=== PATIENT | female | born 1950 | race Caucasian/White ===

== ENCOUNTER → 2017-10-18 14:46 | Outpatient (CLI) | payer MEDICARE, OTHER, SELFPAY ==
[2017-10-18 16:06] LABS: BUN Creatinine Ratio 26.7 (6-22); Calcium 9.4 mg/dL (8.4-10.2); Estimated Glomerular Filt Rate > 60.0 mL/min (>60); Glucose 86 mg/dL (80-110); HEMOLYSIS < 15 (0-50); Potassium 4.5 mmol/L (3.4-5.1); Sodium 130 mmol/L (137-145)
== END ==
PROVIDERS: PCP Family Medicine; Visit Provider Family Medicine
DX: E87.1 Hypo-osmolality and hyponatremia (principal)
CPT/HCPCS: 36415; 80048

== ENCOUNTER → 2018-03-08 12:19 | Outpatient (CLI) | payer MEDICARE, OTHER, SELFPAY ==
--- NOTE | 2018-03-08 12:28 | DI.MG.S_ITS ---
BILATERAL DIGITAL SCREENING MAMMOGRAM 3D/2D WITH CAD: 03/08/2018 CLINICAL: Additional evaluation requested from prior study. Comparison is made to exams dated: 01/10/2016 mammogram, 02/21/2014 mammogram - [facility], and 04/22/2009 mammogram - [facility]. There are scattered fibroglandular elements in both breasts. Current study was also evaluated with a Computer Aided Detection (CAD) system. There is an oval equal density asymmetry with an indistinct margin in the left breast posterior depth inferior region seen on the mediolateral oblique view only. No other significant masses, calcifications, or other findings are seen in either breast. IMPRESSION: INCOMPLETE: NEEDS ADDITIONAL IMAGING EVALUATION The oval equal density asymmetry in the left breast is indeterminate. Mediolateral and spot compression views as well as additional views with possible ultrasound are recommended. This exam was interpreted at Station ID: [id number]. NOTE: For mammograms, a report in lay terms will be sent to the patient. Approximately 15% of breast malignancies will not be visualized mammographically. In the management of a palpable breast mass, a negative mammogram must not discourage biopsy of a clinically suspicious lesion. Electronically Signed By: Jeff gilliam/janel:03/08/2018 15:45:24 letter sent: Additional Imaging Needed ACR BI-RADS Category 0: Incomplete 3340F
== END ==
PROVIDERS: PCP Family Medicine; Visit Provider Family Medicine
DX: Z12.31 Encounter for screening mammogram for malignant neoplasm of breast (principal); M81.0 Age-related osteoporosis without current pathological fracture; Z78.0 Asymptomatic menopausal state
CPT/HCPCS: 77063; 77067; 77080

== ENCOUNTER → 2018-03-31 13:08 | Outpatient (CLI) | payer MEDICARE, OTHER, SELFPAY ==
--- NOTE | 2018-03-31 | DI.MG.S_ITS ---
UNILATERAL LEFT DIGITAL DIAGNOSTIC MAMMOGRAM 3D/2D WITH ADDITIONAL VIEWS: 03/31/2018 CLINICAL: Additional evaluation requested from prior study. Comparison is made to exams dated: 03/08/2018 mammogram - [facility], 01/10/2016 mammogram, and 02/21/2014 mammogram - [facility]. There are scattered fibroglandular elements in left breast. The asymmetry in the left breast posterior depth inferior region seen on the mediolateral oblique view only is not seen in additional views. No other significant masses or calcifications are seen in the breast. IMPRESSION: There is no mammographic evidence of malignancy. A 1 year screening mammogram is recommended. This exam was interpreted at Station ID: [id number]. NOTE: For mammograms, a report in lay terms will be sent to the patient. Approximately 15% of breast malignancies will not be visualized mammographically. In the management of a palpable breast mass, a negative mammogram must not discourage biopsy of a clinically suspicious lesion. Electronically Signed By: Michelle Camp M.D. lk/:03/31/2018 14:06:06 letter sent: Normal Exam ACR BI-RADS Category 2: Benign Finding(s) 3342F
[2018-03-31 13:29] LABS: Add Manual Diff / Slide Review NO; Basophils Percent Auto 1.3 % (0-2); Hemoglobin 10.5 g/dL (12.0-16.0); Lymphocytes Percent Auto 16.4 % (25-40); Mean Corpuscular HGB Conc 32.7 % (30-36); Mean Corpuscular Hemoglobin 26.6 PG (26-34); Mean Corpuscular Volume 81.6 fL (80-100); Monocytes Percent Auto 6.5 % (3-14); Neutrophils Absolute Auto 4600 /uL (3000-5900); Neutrophils Percent Auto 70.8 % (50-75); Platelet Count 366 X10^3/uL (150-400); Red Blood Cell Count 3.93 X10^6/uL (4.0-5.2); White Blood Cell Count 6.5 X10^3/uL (4.5-11.0)
[2018-03-31 13:55] LABS: Alanine Aminotransferase 31 IU/L (9-52); Albumin 4.3 g/dL (3.5-5.0); Albumin Globulin Ratio 1.3 (1.0-2.8); Alkaline Phosphatase 61 U/L (38-126); Aspartate Aminotransferase 28 IU/L (14-36); Bilirubin Total 0.2 mg/dL (0.2-1.3); Blood Urea Nitrogen 15 mg/dL (7-17); Calcium 8.7 mg/dL (8.4-10.2); Carbon Dioxide 29 mmol/L (22-32); Chloride 94 mmol/L (98-107); Cholesterol 192 mg/dL (140-199); Estimated Glomerular Filt Rate > 60.0 mL/min (>60); Globulin 3.2 g/dL (1.7-4.1); Glucose 91 mg/dL (80-110); HDL Cholesterol 55 mg/dL (40-60); HEMOLYSIS < 15 (0-50); LDL Cholesterol Calculated 126 mg/dL (<100); Potassium 4.5 mmol/L (3.4-5.1); Sodium 134 mmol/L (137-145); Total Protein 7.5 g/dL (6.3-8.2); Triglycerides 57 mg/dL (35-150)
[2018-03-31 14:54] LABS: Thyroid Stimulating Hormone 3.79 uIU/mL (0.47-4.68)
== END ==
PROVIDERS: PCP Family Medicine; Visit Provider Family Medicine
DX: R92.8 Other abnormal and inconclusive findings on diagnostic imaging of breast (principal); M81.0 Age-related osteoporosis without current pathological fracture; D64.9 Anemia, unspecified
CPT/HCPCS: 36415; 77065; 80053; 80061; 83540; 83550; 84443; 85025; G0279

== ENCOUNTER → 2018-03-31 14:27 | Outpatient (CLI) | payer MEDICARE, OTHER, SELFPAY ==
[2018-03-31 21:04] LABS: HEMOLYSIS < 15 (0-50); Iron 49 ug/dL (37-170)
[2018-03-31 21:14] LABS: Percent Iron Saturation 13 % (15-50); Total Iron Binding Capacity 376 ug/dL (265-497); Transferrin 317 mg/dL (206-381)
== END ==
PROVIDERS: PCP Family Medicine; Visit Provider Family Medicine
DX: D64.9 Anemia, unspecified (principal)
CPT/HCPCS: 83540; 83550

== ENCOUNTER → 2019-04-05 16:14 | Outpatient (CLI) | payer MEDICARE, OTHER, SELFPAY ==
[2019-04-05 16:59] LABS: Add Manual Diff / Slide Review NO; Basophils Absolute Auto 100 /uL (0-100); Basophils Percent Auto 1.3 % (0-2); Eosinophils Absolute Auto 300 /uL (0-450); Eosinophils Percent Auto 5.6 % (2-4); Hematocrit 31.2 % (36-46); Hemoglobin 10.1 g/dL (12.0-16.0); Lymphocytes Absolute Auto 1100 /uL (1100-4500); Lymphocytes Percent Auto 19.3 % (25-40); Mean Corpuscular HGB Conc 32.2 % (30-36); Mean Corpuscular Hemoglobin 25.7 PG (26-34); Mean Corpuscular Volume 79.7 fL (80-100); Monocytes Absolute Auto 400 /uL (0-900); Monocytes Percent Auto 6.8 % (3-14); Neutrophils Absolute Auto 3700 /uL (1500-7000); Platelet Count 317 X10^3/uL (150-400); Red Blood Cell Count 3.91 X10^6/uL (4.0-5.2); Red Cell Distribution Width 15.8 % (11.6-14.8); White Blood Cell Count 5.5 X10^3/uL (4.5-11.0)
[2019-04-05 17:06] LABS: Alanine Aminotransferase 7 IU/L (<35); Albumin 4.3 g/dL (3.5-5.0); Albumin Globulin Ratio 1.5 (1.0-2.8); Alkaline Phosphatase 70 U/L (38-126); Aspartate Aminotransferase 23 IU/L (14-36); Bilirubin Total 0.4 mg/dL (0.2-1.3); Blood Urea Nitrogen 12 mg/dL (7-17); Calcium 9.2 mg/dL (8.4-10.2); Carbon Dioxide 28 mmol/L (22-32); Chloride 90 mmol/L (98-107); Cholesterol 220 mg/dL (140-199); Estimated Glomerular Filt Rate > 60.0 mL/min (>60); Globulin 2.9 g/dL (1.7-4.1); Glucose 91 mg/dL (80-110); HDL Cholesterol 58 mg/dL (40-60); HEMOLYSIS < 15 (0-50); LDL Cholesterol Calculated 152 mg/dL (<100); Potassium 4.3 mmol/L (3.4-5.1); Sodium 128 mmol/L (137-145); Total Protein 7.2 g/dL (6.3-8.2); Triglycerides 52 mg/dL (35-150)
[2019-04-05 17:40] LABS: Thyroid Stimulating Hormone 3.34 uIU/mL (0.47-4.68)
== END ==
PROVIDERS: PCP Family Medicine; Visit Provider Family Medicine
DX: D64.9 Anemia, unspecified (principal)
CPT/HCPCS: 36415; 80053; 80061; 84443; 85025

== ENCOUNTER → 2019-06-08 13:44 | Outpatient (CLI) | payer MEDICARE, SELFPAY | PROVIDERS: PCP Family Medicine; Visit Provider Family Medicine | DX: M81.0 Age-related osteoporosis without current pathological fracture (principal); Z78.0 Asymptomatic menopausal state; Z82.62 Family history of osteoporosis | CPT/HCPCS: 77080 ==

== ENCOUNTER → 2020-03-13 16:52 | Outpatient (CLI) | payer MEDICARE, SELFPAY ==
[2020-03-13 17:30] LABS: Add Manual Diff / Slide Review NO; Basophils Absolute Auto 100 /uL (0-100); Basophils Percent Auto 1.3 % (0-2); Eosinophils Absolute Auto 400 /uL (0-450); Eosinophils Percent Auto 7.7 % (2-4); Hematocrit 30.1 % (36-46); Hemoglobin 9.9 g/dL (12.0-16.0); Lymphocytes Absolute Auto 1100 /uL (1100-4500); Lymphocytes Percent Auto 20.5 % (25-40); Mean Corpuscular Hemoglobin 26.4 PG (26-34); Monocytes Absolute Auto 500 /uL (0-900); Monocytes Percent Auto 8.7 % (3-14); Neutrophils Absolute Auto 3200 /uL (1500-7000); Neutrophils Percent Auto 61.8 % (50-75); Platelet Count 317 X10^3/uL (150-400); Red Blood Cell Count 3.76 X10^6/uL (4.0-5.2); Red Cell Distribution Width 14.9 % (11.6-14.8); White Blood Cell Count 5.2 X10^3/uL (4.5-11.0)
[2020-03-13 17:59] LABS: Alanine Aminotransferase 9 IU/L (<35); Albumin 4.2 g/dL (3.5-5.0); Albumin Globulin Ratio 1.2 (1.0-2.8); Alkaline Phosphatase 69 U/L (38-126); Aspartate Aminotransferase 27 IU/L (14-36); BUN Creatinine Ratio 33.3 (6-22); Bilirubin Total 0.3 mg/dL (0.2-1.3); Blood Urea Nitrogen 19 mg/dL (7-17); Calcium 8.8 mg/dL (8.4-10.2); Carbon Dioxide 31 mmol/L (22-32); Chloride 95 mmol/L (98-107); Estimated Glomerular Filt Rate > 60.0 mL/min (>60); Globulin 3.5 g/dL (1.7-4.1); Glucose 93 mg/dL (80-110); HEMOLYSIS < 15 (0-50); Magnesium 2.2 mg/dL (1.6-2.3); Potassium 4.5 mmol/L (3.4-5.1); Sodium 129 mmol/L (137-145); Total Protein 7.7 g/dL (6.3-8.2)
[2020-03-13 18:28] LABS: Thyroid Stimulating Hormone 5.29 uIU/mL (0.47-4.68)
== END ==
PROVIDERS: PCP Family Medicine; Referring Provider Family Medicine; Visit Provider Family Medicine
DX: G20 Parkinson's disease (principal)
CPT/HCPCS: 36415; 80053; 83735; 84443; 85025

== ENCOUNTER → 2020-03-28 14:34 | Outpatient (CLI) | payer MEDICARE, SELFPAY ==
--- NOTE | 2020-03-28 14:36 | DI.MRI.S_ITS ---
PROCEDURE: MR KNEE RT WO CON INDICATIONS: Right Knee pain TECHNIQUE: Noncontrast sagittal PD fast spin echo and T2 fast spin echo with fat saturation, sagittal 3-D FLASH with fat saturation; coronal T1 spin echo and PD fast spin echo with fat saturation, and axial PD fast spin echo with fat saturation through the knee. COMPARISON: [facility], MR, KNEE WITHOUT CONTRAST, 02/24/2012, 7:58. FINDINGS: Image quality: Excellent. Menisci: There is medial meniscal extrusion. There is complex degenerative tear involving the body and posterior horn of the medial meniscus. There is intrasubstance degeneration anterior horn of the medial meniscus. The lateral meniscus demonstrates normal morphology and internal signal. The meniscal root ligaments appear intact. Cruciate ligaments: The anterior and posterior cruciate ligaments appear intact. There is a 1.7 x 1.1 x 1.4 cm septated cyst just adjacent to the PCL, new since the last exam. Medial structures: The medial collateral ligament appears intact. The semimembranosus tendon insertions and meniscocapsular junction appear intact. Visualized portions of the pes anserinus tendons appear normal. No abnormal bursal fluid. Lateral structures: The lateral collateral ligament, long and short heads of the biceps femoris tendon appear intact. The popliteus tendon appears normal. Iliotibial band appears normal. Anterior structures: The quadriceps and patellar tendons appear intact. Patellar alignment is normal. No femoral trochlear dysplasia or ventral trochlear prominence. No edema in the infrapatellar fat pad. Bones and cartilage: No fractures. There is severe cartilage thinning and fibrillation of the medial femorotibial compartment with denudation of articular cartilage, significantly worsened compared to 02/24/2012. There is subchondral edema and cyst formation in the medial femoral condyle and, to a less degree, medial tibial plateau. There is also mild to moderate cartilage thinning and fibrillation in the lateral femorotibial compartment and patellofemoral compartment. A small near full-thickness fissure is noted in the lateral tibial plateau. Joint space: There is moderate knee joint effusion. A multilocular moderate-sized Lord's cyst is present. Normal appearing synovial plicae are incidentally noted. IMPRESSION: 1. Medial meniscal extrusion with complex degenerative tear involving the body and posterior horn. 2. A 1.7 x 1.1 x 1.4 cm multilocular posterior collateral ligament cyst. 3. Severe cartilage loss in the medial femorotibial compartment. 4. Moderate knee joint effusion. 5. A moderate-sized multilocular Lord cyst. Dictated by: Queenie Rutledge M.D. on 03/28/2020 at 15:58 Approved by: Queenie Rutledge M.D. on 03/28/2020 at 16:17
== END ==
PROVIDERS: PCP Family Medicine; Referring Provider Family Medicine; Visit Provider Family Medicine
DX: M25.561 Pain in right knee (principal); M23.221 Derangement of posterior horn of medial meniscus due to old tear or injury, right knee; M25.461 Effusion, right knee; M71.21 Synovial cyst of popliteal space [Baker], right knee
CPT/HCPCS: 73721

== ENCOUNTER → 2020-06-10 12:54 | Outpatient (CLI) | payer MEDICARE, SELFPAY ==
[2020-06-10 14:46] LABS: Cholesterol 237 mg/dL (140-199); HDL Cholesterol 60 mg/dL (40-60); LDL Cholesterol Calculated 158 mg/dL (<100); Triglycerides 96 mg/dL (35-150)
[2020-06-10 15:31] LABS: Free T3, Triiodothyronine Free 3.75 pg/mL (2.77-5.27); Free T4, Direct Thyroxine 0.87 ng/dL (0.78-2.19)
[2020-06-10 15:45] LABS: Thyroid Stimulating Hormone 4.67 uIU/mL (0.47-4.68)
== END ==
PROVIDERS: PCP Family Medicine; Referring Provider Family Medicine; Visit Provider Family Medicine
DX: I10 Essential (primary) hypertension (principal)
CPT/HCPCS: 36415; 80061; 84439; 84443; 84481

== ENCOUNTER 2020-09-19 15:39 | Emergency (ER) | payer MEDICARE, SELFPAY ==
[2020-09-19 16:00] VITALS: BP 146/72; PULSE 84; RESP 15; TEMP 37; O2SAT 99; BMI 21.6
--- NOTE | 2020-09-19 16:09 | DI.RAD.S_ITS ---
PROCEDURE: XR SACRUM COCCYX MIN 2V INDICATIONS: tailbone pain TECHNIQUE: 3 views of the sacrum and coccyx acquired. COMPARISON: None. FINDINGS: Bones: On the lateral view, there is very subtle asymmetric widening of the distal coccyx with possible minimal step-off deformity of the more proximal margin at this level. This may be artifactual and related to patient positioning. Otherwise, note acute fractures visualized. No suspicious osseous lesions. Soft tissues: Visualized bowel gas pattern is normal. No suspicious soft tissue densities. Surgical clips project over the bilateral inguinal region. IMPRESSION: Seen only on the lateral view, there is subtle, asymmetric widening of the distal coccyx with possible subtle step-off deformity. This may represent a subtle fracture versus artifact from patient positioning. Recommend correlation with examination for location of patient's pain. Dictated by: Kj Rainey M.D. on 09/19/2020 at 15:40 Approved by: Kj Rainey M.D. on 09/19/2020 at 15:45
--- NOTE | 2020-09-19 17:12 | ED.BACK ---
HPI - Back Pain/Injury General Chief Complaint: Back Pain/Injury Stated Complaint: pain, tail bone/ back pain, feels pulled Time Seen by Provider: 09/19/20 16:34 Source: patient Mode of arrival: Ambulatory Limitations: no limitations History of Present Illness HPI Narrative: 70F nonsmoker with Parkinsons presents with the chief complaint of left buttock pain after turning awkwardly a few days ago and feeling a pulling sensation in her buttock. She states she has severe pain with motion and improvement with rest. She denies any radiation of her pain nor neurologic symptoms such as numbness, tingling or weakness. She denies any trouble controlling bowel or bladder. She additionally has some pain on her tailbone but does not think she had a fall. She denies fever or chills, takes no blood thinners MD Complaint: back pain Related Data Home Medications Medication Instructions Recorded Confirmed aspirin 81 mg PO QDAY #30 ctb 02/14/16 08/13/20 Previous Rx's Medication Instructions Recorded estradiol [Estrace] 0.01 % VAGINAL 2 X WEEK #42.5 gm 03/17/17 acyclovir 400 mg tablet 400 mg PO TID #21 tab 04/05/19 triamcinolone acetonide 0.025 % 1 applictn TOP BID #15 gram 04/05/19 topical cream sertraline 100 mg tablet 150 mg PO DAILY #135 tab 11/20/19 carbidopa 25 mg-levodopa 100 mg 1 tab PO TID #90 tab 03/25/20 tablet gabapentin 300 mg capsule 900 mg PO BEDTIME PRN #90 cap 04/10/20 lisinopril 10 mg tablet 10 mg PO DAILY #90 tab 04/10/20 clonazepam 0.5 mg tablet See Rx Instructions .ROUTE 08/13/20 .COMPLEX PRN #90 tablet hydroxyzine HCl 10 mg tablet See Rx Instructions .ROUTE 08/16/20 .COMPLEX #30 tablet cyclobenzaprine 10 mg PO TID PRN #14 tab 09/19/20 ketorolac 10 mg PO Q6H PRN #14 tab 09/19/20 Allergies Allergy/AdvReac Type Severity Reaction Status Date / Time Sulfa (Sulfonamide Allergy Mild RASH Verified 09/19/20 16:05 Antibiotics) [SULFA (SULFONAMIDE ANTIBIOTICS)] Review of Systems Constitutional Constitutional: Denies chills, Denies fatigue, Denies fever(s), Denies frequent falls, Denies lethargy and Denies weakness Eyes Eyes: Denies change in vision, Denies eye discharge, Denies irritation and Denies loss of vision ENT Ears, Nose, Mouth, and Throat: Denies change in voice, Denies dizziness, Denies neck pain, Denies sore throat and Denies throat swelling Cardiovascular Cardiovascular: Denies chest pain, Denies irregular heart rhythm, Denies lightheadedness, Denies palpitations, Denies dyspnea, Denies dyspnea on exertion and Denies orthopnea Respiratory Respiratory: Denies cough, Denies dyspnea, Denies dyspnea on exertion and Denies wheezing Gastrointestinal Gastrointestinal: Denies abdominal pain, Denies change in bowel habits, Denies diarrhea, Denies nausea and Denies vomiting Musculoskeletal Musculoskeletal: Reports back pain, Denies neck pain and Denies numbness Integumentary/Breasts Skin/Breast: Denies pruritus, Denies erythema, Denies rash and Denies wounds Neurologic Neurologic: Denies behavioral changes, Denies confusion, Denies dizziness, Denies frequent falls, Denies loss of vision, Denies numbness and Denies weakness Psychiatric Psychiatric: Denies anxiety, Denies behavioral changes, Denies confusion, Denies depression, Denies homicidal ideation and Denies suicidal ideation Endocrine Endocrine: Denies fatigue, Denies flushing and Denies palpitations Hematologic/Lymphatic Hematologic/Lymphatic: Denies easy bruising Allergic/Immunologic Allergic/Immunologic: Denies urticaria, Denies throat swelling and Denies wheezing Patient History Medical History ADD (attention deficit disorder) Anxiety Asthma Lord's cyst of knee Chicken pox (~1958) Depression Hives (~1999) HSV (herpes simplex virus) infection (~1977) Hypertension Melanoma (~2008) Neck pain of over 3 months duration Nocturia more than twice per night Osteoporosis (~2014) Parkinsonism (~2017) Plantar warts Pure hypercholesterolemia Restless leg Rheumatoid arthritis Seasonal allergies (~1975) Skin cancer (~2010) Surgical History Anesthesia Fractures (~05/2012) H/O melanoma excision (~2008) H/O vein stripping (~2003) History of repair of rotator cuff Family History Brother Age: 72 High cholesterol Brother Age: 64 High cholesterol Child Age: 43 History of skin cancer Child Age: 39 Arthritis Father Skin cancer Parkinson's disease dementia Arthritis Dementia Mother Dementia Hypertension Osteoporosis History of shingles Arthritis Sister Age: 58 Thyroid condition Grandfather No problems noted. Grandmother No problems noted. Social History Smoking Status: Never smoker alcohol intake: never substance use type: does not use Smoking Status: Never smoker alcohol intake frequency: holidays/special occasions only Substance Use Type: does not use Exam Narrative Exam Narrative: GENERAL: [70] year old patient appears stated age. Well-nourished, well-developed patient, in mild distress. Obviously uncomfortable, rubbing her lower back. Evidence of her movement disorder with mild resting tremor HEAD: Atraumatic. Normocephalic. EYES: Pupils equal round and reactive. Extraocular motions intact. No scleral icterus. No injection or drainage. ENT: Nose without bleeding, purulent drainage. Throat without erythema, tonsillar hypertrophy or exudate. Airway patent. NECK: Trachea midline. Non tender CARDIOVASCULAR: Regular rate and rhythm without murmurs, gallops, or rubs. RESPIRATORY: Clear to auscultation. Breath sounds equal bilaterally. No wheezes, rales, or rhonchi. GASTROINTESTINAL: Abdomen soft, non-tender, nondistended. EXTREMITIES: No edema or joint tenderness. BACK: draw furnace tender but free of any obvious external abnormalities. Patient exam notes decreased range of motion and muscle spasm, but no CVA tenderness, or vertebral point tenderness. There are no symptoms of cauda equina such as saddle anesthesia, and decreased reflexes, decreased sensation or strength. NEURO: AOx3. SKIN: No rash or erythema of visible areas Initial Vital Signs Initial Vital Signs: Vital Signs Temperature 98.6 F 09/19/20 16:00 Pulse Rate 84 09/19/20 16:00 Respiratory Rate 15 09/19/20 16:00 Blood Pressure 146/72 H 09/19/20 16:00 Pulse Oximetry 99 09/19/20 16:00 Course Orders Ordered: Discontinued Medications Cyclobenzaprine HCl (Cyclobenzaprine 10 Mg Tablet) 10 mg PO NOW ONE Stop: 09/19/20 17:22 Last Admin: 04/22/21 17:28 Dose: 10 mg Documented by: GERALDO Ketorolac Tromethamine (Ketorolac 60 Mg/2 Ml Vial) 30 mg IM NOW ONE Stop: 09/19/20 17:22 Last Admin: 09/19/20 17:27 Dose: 30 mg Documented by: GERALDO Vital Signs Vital signs: Vital Signs - 8 hr 09/19/20 16:00 Temperature 98.6 F Pulse Rate 84 Respiratory Rate 15 Blood Pressure 146/72 H Pulse Oximetry 99 MDM - Back Pain/Injury Lab Data Labs: Lab Results 09/19/20 Range/Units 17:00 Urine RBC 0-1/hpf (0-5/HPF) Urine WBC 30-100/hpf H (0-5/HPF) Ur Squamous Epith Cells 1-5 /hpf (0-5/HPF) Amorphous Sediment 1+ Urine Bacteria Many (>30) H (None) Ur Culture Indicated? Specimen cultured Urine Dip Bedside Urine Glucose Negative Bedside Urine Bilirubin - Negative Bedside Urine Ketone - Negative Urine Specific [place] 1.015 Bedside Urine Occult Blood +/- Bedside Urine pH 7 Bedside Urine Protein - Negative Bedside Urine Urobilinogen - Negative Bedside Urine Nitrite + Positive Bedside Urine Leukocytes + 70 Esterase MDM Narrative Medical decision making narrative: Patient does have leuks in her urine but denies dysuria, frequency or urgency. She has had no systemic findings such as fever or chills and we will await culture results prior to deciding about treatment. Multiple etiologies of back pain considered including; Epidural abscess, cauda equina, mass occupying lesion, and other considered Discharge Plan Departure Patient Disposition: Home Clinical Impression: Lower back pain Qualifiers: Chronicity: acute Back pain laterality: left Sciatica presence: without sciatica Qualified Code(s): M54.5 - Low back pain Instructions: DI for Back Spasm Activity Restrictions/Additional Instructions: *You have been diagnosed with [left lumbar pain and spasm without evidence of sciatica or spinal cord involvement. Suggests there is a small subtle step-off deformity which may be new or old but would not have any significant or specific treatment.] *What to do: *Take medications as directed: Prescriptions have been sent to [facility] in [place] *Follow up with your primary care provider in 2-3 days, call for an appointment. Let them know you were seen in the Emergency Department and that we ask that you be seen in follow up *Return to ER if you should have any new, worsening or concerning symptoms, such as [loss of control of bowel or bladder, weakness of your extremities, fever greater than 101 F or other bothersome symptoms] Prescriptions: New cyclobenzaprine 10 mg tablet 10 mg PO TID PRN (Reason: muscle spasm) Qty: 14 RF: 0 ketorolac 10 mg tablet 10 mg PO Q6H PRN (Reason: pain) Qty: 14 RF: 0 No Action aspirin 81 MG tablet,chewable 81 mg PO QDAY Qty: 30 RF: 0 estradiol [Estrace] 0.01 % cream 0.01 % Vaginal 2 X WEEK Qty: 42.5 RF: 11 sertraline 100 mg tablet 150 mg PO DAILY Qty: 135 RF: 3 carbidopa-levodopa 25-100 mg tablet 1 tab PO TID Qty: 90 RF: 5 hydroxyzine HCl 10 mg tablet See Rx Instructions .ROUTE .COMPLEX Qty: 30 RF: 2 acyclovir 400 mg tablet 400 mg PO TID Qty: 21 RF: 5 triamcinolone acetonide 0.025 % cream 1 applictn TOP BID Qty: 15 RF: 0 gabapentin 300 mg capsule 900 mg PO BEDTIME PRN (Reason: sleep) Qty: 90 RF: 5 lisinopril 10 mg tablet 10 mg PO DAILY Qty: 90 RF: 3 clonazepam 0.5 mg tablet See Rx Instructions .ROUTE .COMPLEX PRN (Reason: sleep) Qty: 90 RF: 0 Referrals: Gigi Carr DO [Primary Care Provider] -
[2020-09-19] MEDS: KETOROLAC 60 MG/2 ML VIAL 30 MG IM (17:27)
[2020-09-19] MEDS: CYCLOBENZAPRINE 10 MG TABLET PO (17:28)
[2020-09-19 18:04] VITALS: BP 169/98; PULSE 97; RESP 16; O2SAT 98
[2020-09-19 18:17] LABS: Amorphous Sediment Urine 1+; Bacteria Urine Many (>30); Culture Indicated Urine Specimen Cultured; RBC Urine 0-1/HPF (0-5/HPF); Squamous Epithelial Cell Urine 1-5 /HPF (0-5/HPF); WBC Urine 30-100/HPF (0-5/HPF)
== END 2020-09-19 18:06 | disposition home or self-care (01) ==
PROVIDERS: Emergency Provider Emergency Medicine; PCP Family Medicine
DX: M54.5 Low back pain (principal)
CPT/HCPCS: 72220; 81003; 81015; 87077; 87086; 87186; 96372; 99283; J1885

== ENCOUNTER 2020-09-23 00:09 | Observation (INO) | payer MEDICARE, SELFPAY ==
[2020-09-23] VITALS (15 sets, daily range): BP systolic 117–177; BP diastolic 59–87; PULSE 70–86; RESP 10–19; TEMP 36.1–37; O2SAT 95–98; BMI 20.9; BMI 20.8
--- NOTE | 2020-09-23 00:15 | ED_ITS ---
HPI - Back Pain/Injury General Chief Complaint: Back Pain/Injury Stated Complaint: Back Pain Time Seen by Provider: 09/23/20 00:10 Source: patient and EMS Mode of arrival: EMS Limitations: no limitations History of Present Illness HPI Narrative: 70-year-old female nonsmoker with history of Parkinson's presents by EMS for repeat evaluation of severe low back pain. She denies any specific injury, fever or use of blood thinners. She states perhaps her pain started when she stepped awkwardly and pulled a muscle in her left buttock. Her pain is worse with motion and improves with rest. She denies any numbness, tingling, or weakness of her lower extremities. She denies any loss of control of bowel or bladder. She was seen and evaluated a few days ago and given the typical regimen of anti-inflammatories and antispasm meds. She feels worse today than she did then. Complaint: back pain Onset (ago): day(s) Duration: constant Similar Symptoms Previously: Yes Location: lumbar spine Severity: severe Quality: burning and aching Radiation: none Relieving factors: immobilization Exacerbating factors: movement and walking Context: turning/twisting Associated symptoms: denies other symptoms Treatments prior to arrival: other medications Related Data Home Medications Medication Instructions Recorded Confirmed aspirin 81 mg PO QDAY #30 ctb 02/14/16 08/13/20 Previous Rx's Medication Instructions Recorded estradiol [Estrace] 0.01 % VAGINAL 2 X WEEK #42.5 gm 03/17/17 acyclovir 400 mg tablet 400 mg PO TID #21 tab 04/05/19 triamcinolone acetonide 0.025 % 1 applictn TOP BID #15 gram 04/05/19 topical cream sertraline 100 mg tablet 150 mg PO DAILY #135 tab 11/20/19 carbidopa 25 mg-levodopa 100 mg 1 tab PO TID #90 tab 03/25/20 tablet gabapentin 300 mg capsule 900 mg PO BEDTIME PRN #90 cap 04/10/20 lisinopril 10 mg tablet 10 mg PO DAILY #90 tab 04/10/20 clonazepam 0.5 mg tablet See Rx Instructions .ROUTE 08/13/20 .COMPLEX PRN #90 tablet hydroxyzine HCl 10 mg tablet See Rx Instructions .ROUTE 08/16/20 .COMPLEX #30 tablet cyclobenzaprine 10 mg PO TID PRN #14 tab 09/19/20 ketorolac 10 mg PO Q6H PRN #14 tab 09/19/20 Allergies Allergy/AdvReac Type Severity Reaction Status Date / Time Sulfa (Sulfonamide Allergy Mild RASH Verified 09/19/20 16:05 Antibiotics) [SULFA (SULFONAMIDE ANTIBIOTICS)] Review of Systems Constitutional Constitutional: Denies chills, Denies fatigue, Denies fever(s), Denies frequent falls, Denies lethargy and Denies weakness Eyes Eyes: Denies change in vision, Denies eye discharge, Denies irritation and Denies loss of vision ENT Ears, Nose, Mouth, and Throat: Denies change in voice, Denies dizziness, Denies neck pain, Denies sore throat and Denies throat swelling Cardiovascular Cardiovascular: Denies chest pain, Denies irregular heart rhythm, Denies lightheadedness, Denies palpitations, Denies dyspnea, Denies dyspnea on exertion and Denies orthopnea Respiratory Respiratory: Denies cough, Denies dyspnea, Denies dyspnea on exertion and Denies wheezing Gastrointestinal Gastrointestinal: Denies abdominal pain, Denies change in bowel habits, Denies d iarrhea, Denies nausea and Denies vomiting Musculoskeletal Musculoskeletal: Reports back pain, Denies neck pain and Denies numbness Integumentary/Breasts Skin/Breast: Denies pruritus, Denies erythema, Denies rash and Denies wounds Neurologic Neurologic: Denies behavioral changes, Denies confusion, Denies dizziness, Denies frequent falls, Denies loss of vision, Denies numbness and Denies weakness Psychiatric Psychiatric: Denies anxiety, Denies behavioral changes, Denies confusion, Denies depression, Denies homicidal ideation and Denies suicidal ideation Endocrine Endocrine: Denies fatigue, Denies flushing and Denies palpitations Hematologic/Lymphatic Hematologic/Lymphatic: Denies easy bruising Allergic/Immunologic Allergic/Immunologic: Denies urticaria, Denies throat swelling and Denies wheezing Patient History Medical History ADD (attention deficit disorder) Anxiety Asthma Lord's cyst of knee Chicken pox (~1958) Depression Hives (~1999) HSV (herpes simplex virus) infection (~1977) Hypertension Melanoma (~2008) Neck pain of over 3 months duration Nocturia more than twice per night Osteoporosis (~2014) Parkinsonism (~2018) Plantar warts Pure hypercholesterolemia Restless leg Rheumatoid arthritis Seasonal allergies (~1975) Skin cancer (~2010) Surgical History Anesthesia Fractures (~05/2012) H/O melanoma excision (~2008) H/O vein stripping (~2003) History of repair of rotator cuff Family History Brother Age: 72 High cholesterol Brother Age: 64 High cholesterol Child Age: 43 History of skin cancer Child Age: 39 Arthritis Father Skin cancer Parkinson's disease dementia Arthritis Dementia Mother Dementia Hypertension Osteoporosis History of shingles Arthritis Sister Age: 58 Thyroid condition Grandfather No problems noted. Grandmother No problems noted. Social History Smoking Status: Never smoker alcohol intake: never substance use type: does not use Smoking Status: Never smoker alcohol intake frequency: holidays/special occasions only Substance Use Type: does not use Exam Narrative Exam Narrative: GENERAL: [61] year old patient appears stated age. Well- nourished, well-developed patient, in mild distress. On her side, complaining of low back pain HEAD: Atraumatic. Normocephalic. EYES: Pupils equal round and reactive. Extraocular motions intact. No scleral icterus. No injection or drainage. ENT: Nose without bleeding, purulent drainage. Throat without erythema, tonsillar hypertrophy or exudate. Airway patent. NECK: Trachea midline. Non tender CARDIOVASCULAR: Regular rate and rhythm without murmurs, gallops, or rubs. RESPIRATORY: Clear to auscultation. Breath sounds equal bilaterally. No wheezes, rales, or rhonchi. GASTROINTESTINAL: Abdomen soft, non-tender, nondistended. EXTREMITIES: No edema or joint tenderness. BACK: rover tender but free of any obvious external abnormalities. Patient exam notes decreased range of motion and muscle spasm, but no CVA tenderness, or vertebral point tenderness. There are no symptoms of cauda equina such as saddle anesthesia, and decreased reflexes, decreased sensation or strength. NEURO: AOx3. SKIN: No rash or erythema of visible areas Initial Vital Signs Initial Vital Signs: Vital Signs Temperature 98.4 F 09/23/20 00:14 Pulse Rate 84 09/23/20 00:14 Respiratory Rate 18 09/23/20 00:14 Blood Pressure 177/86 H 09/23/20 00:14 Pulse Oximetry 98 09/23/20 00:14 Course Orders Ordered: ED Orders 09/23/20 00:25 Basic Metabolic Panel Stat C-Reactive Protein Quant Stat Complete Blood Count AUTO DIFF Stat Erythrocyte Sedimentation Rate Stat Partial Thromboplastin Time Stat Prothrombin Time INR Stat 09/23/20 00:37 CT lumbar spine w con Stat 09/23/20 01:42 COVID19 - ADMIT (APPLICATIONS PROGRAMMER ANALYST swab/PCR) Stat 09/23/20 01:48 Consult to Orthopedic Surgery Stat Sodium Chloride (Normal Saline 0.9%) 1,000 mls @ 125 mls/hr IV CONT YOSELYN Last Admin: 09/23/20 00:36 Dose: 125 mls/hr Documented by: Potassium Chloride 40 meq/ (Sodium Chloride) 520 mls @ 130 mls/hr IV NOW ONE Stop: 09/23/20 05:08 Last Admin: 09/23/20 01:44 Dose: 130 mls/hr Documented by: Discontinued Medications Hydromorphone HCl (Hydromorphone 0.5 Mg Inj) 0.5 mg IV NOW ONE Stop: 09/23/20 00:15 Last Admin: 09/23/20 00:36 Dose: 0.5 mg Documented by: Ceftriaxone Sodium/Dextrose (Rocephin) 1 gm in 50 mls @ 100 mls/hr IV NOW ONE Stop: 09/23/20 01:01 Last Infusion: 09/23/20 01:43 Dose: Infused Documented by: Consultations Consultation #1: Discussion with on-call orthopedics (Gera) who states treatment would be weight-bearing as tolerated use of a walker, no surgical findings indicated by imaging as described. Furthermore no red flag neuro surgical findings such as saddle anesthesia, lower extremity weakness or depressed reflexes are noticed Consultation #2: Hospitalist happy to accept Vital Signs Vital signs: Vital Signs - 8 hr 09/23/20 00:14 09/23/20 01:30 Temperature 98.4 F Pulse Rate 84 74 Respiratory Rate 18 18 Blood Pressure 177/86 H 174/86 H Pulse Oximetry 98 96 MDM - Back Pain/Injury Lab Data Result diagrams: 09/23/20 00:25 09/23/20 00:25 Labs: Lab Results 09/23/20 09/23/20 Range/Units 00:25 00:25 WBC 6.7 (4.5-11.0) X10^3/uL RBC 3.41 L (4.0-5.2) X10^6/uL Hgb 9.2 L (12.0-16.0) g/dL Hct 27.1 L (36-46) % MCV 79.3 L (80-100) fL MCH 26.8 (26-34) PG MCHC 33.9 (30-36) % RDW 15.7 H (11.6-14.8) % Plt Count 289 (150-400) X10^3/uL Neut % (Auto) 77.2 H (50-75) % Lymph % (Auto) 10.3 L (25-40) % [place] % (Auto) 7.8 (3-14) % Eos % (Auto) 3.9 (2-4) % Baso % (Auto) 0.8 (0-2) % Neut # (Auto) 5200 (1197-6585) /uL Lymph # (Auto) 700 L (0989-2244) /uL [place] # (Auto) 500 (0-900) /uL Eos # (Auto) 300 (0-450) /uL Baso # (Auto) 100 (0-100) /uL ESR 57 H (0-20) MM/HR Sodium 121 L (137-145) mmol/L Potassium 3.2 L (3.4-5.1) mmol/L Chloride 89 L (98-107) mmol/L Carbon Dioxide 26 (22-32) mmol/L BUN 13 (7-17) mg/dL Creatinine 0.40 L (0.52-1.04) mg/dL Estimated GFR > 60.0 (>60) mL/min BUN/Creatinine Ratio 32.5 H (6-22) Glucose 117 H (80-110) mg/dL Calcium 8.9 (8.4-10.2) mg/dL C-Reactive Protein 3.0 H (<1.0) mg/dL Urine Dip Bedside Urine Glucose Negative Bedside Urine Bilirubin - Negative Bedside Urine Ketone - Negative Urine Specific [place] 1.015 Bedside Urine Occult Blood + Bedside Urine pH 6.5 Bedside Urine Protein - Negative Bedside Urine Urobilinogen - Negative Bedside Urine Nitrite - Negative Bedside Urine Leukocytes ++ [address] LSPINE w/contrast: Radiologist's Impression: Sacral fractures, no lumbar fracture. Possible anterior epidural hematoma at L4 Discharge Plan Departure Patient Disposition: Admitted As Inpatient Clinical Impression: Acute hyponatremia, Acute hypokalemia, Acute UTI Acute back pain Qualifiers: Back pain location: low back pain Back pain laterality: left Sciatica presence: without sciatica Qualified Code(s): M54.5 - Low back pain Closed sacral fracture Qualifiers: Encounter type: initial encounter Fracture morphology: unspecified fracture morphology Qualified Code(s): S32.10XA - Unspecified fracture of sacrum, initial encounter for closed fracture
[2020-09-23] MEDS: SODIUM CHLORIDE 0.9% 1,000 ML 125 ML IV (00:36)
[2020-09-23] MEDS: HYDROMORPHONE 0.5 MG INJ IV (00:36)
--- NOTE | 2020-09-23 00:37 | DI.CT.S_ITS ---
PROCEDURE: CT LUMBAR SPINE W CON INDICATIONS: worsening pain, return visit TECHNIQUE: After the administration of intravenous Isovue contrast, 3 mm thick sections acquired through the levels of interest. Sagittal and coronal reformats were then constructed. For radiation dose reduction, the following was used: automated exposure control. COMPARISON: [facility], CR, XR SACRUM COCCYX MIN 2V, 09/19/2020, 16:16. FINDINGS: Image quality: Excellent. Bones: Bilateral, mildly displaced zone 1 sacral fractures are noted. Mildly displaced right zone 2 sacral fracture which extends into the right S1-S2 neural foramen. Moderate L4-L5 degenerative disc disease. Mild L1-L2, L2-L3, L3-L4 and L5-S1 degenerative disc disease. Mild L5-S1 facet arthropathy. Soft tissues: No paraspinous mass or inflammation. No paraspinous fluid collections. No abnormal paraspinous postcontrast enhancement. No epidural abscess identified. IMPRESSION: 1. Bilateral zone 1 and right zone 2 sacral fractures. 2. No vertebral body compression fracture. Dictated by: Margarita Barth MD, PhD on 09/23/2020 at 8:10 Approved by: Margarita Barth MD, PhD on 09/23/2020 at 8:15
[2020-09-23 00:40] LABS: Add Manual Diff / Slide Review NO; Basophils Absolute Auto 100 /uL (0-100); Basophils Percent Auto 0.8 % (0-2); Eosinophils Absolute Auto 300 /uL (0-450); Eosinophils Percent Auto 3.9 % (2-4); Hematocrit 27.1 % (36-46); Hemoglobin 9.2 g/dL (12.0-16.0); Lymphocytes Absolute Auto 700 /uL (1100-4500); Lymphocytes Percent Auto 10.3 % (25-40); Mean Corpuscular HGB Conc 33.9 % (30-36); Mean Corpuscular Hemoglobin 26.8 PG (26-34); Mean Corpuscular Volume 79.3 fL (80-100); Monocytes Absolute Auto 500 /uL (0-900); Monocytes Percent Auto 7.8 % (3-14); Neutrophils Absolute Auto 5200 /uL (1500-7000); Neutrophils Percent Auto 77.2 % (50-75); Platelet Count 289 X10^3/uL (150-400); Red Blood Cell Count 3.41 X10^6/uL (4.0-5.2); Red Cell Distribution Width 15.7 % (11.6-14.8); White Blood Cell Count 6.7 X10^3/uL (4.5-11.0)
[2020-09-23] MEDS: CEFTRIAXONE 1 GM/50 ML FROZ.PIGGY IV (00:40)
[2020-09-23 00:47] LABS: BUN Creatinine Ratio 32.5 (6-22); Blood Urea Nitrogen 13 mg/dL (7-17); Calcium 8.9 mg/dL (8.4-10.2); Carbon Dioxide 26 mmol/L (22-32); Chloride 89 mmol/L (98-107); Estimated Glomerular Filt Rate > 60.0 mL/min (>60); Glucose 117 mg/dL (80-110); HEMOLYSIS < 15 (0-50); Potassium 3.2 mmol/L (3.4-5.1); Sodium 121 mmol/L (137-145)
[2020-09-23 00:54] LABS: Erythrocyte Sedimentation Rate 57 MM/HR (0-20)
[2020-09-23] MEDS: POTASSIUM CHLORIDE 40 MEQ in SODIUM CHLORIDE 0.9% 500 ML 130 ML IV (01:44)
[2020-09-23 01:52] LABS: Prothrombin Time 11.9 SECONDS (10.1-12.7)
[2020-09-23 01:55] LABS: PTT Partial Thromboplastin Tim 30 SECONDS (26.4-36.2)
--- NOTE | 2020-09-23 02:36 | PC.NURSE ---
Pt with severe pain when moving off of bedpan. Dr Mcmullen aware, verbal order received for repeat dose of Dilaudid 0.5mg IV
--- NOTE | 2020-09-23 02:37 | P.HP_ITS ---
History of Present Illness History of Present Illness Date Patient Seen: 09/23/20 Chief complaint: Back Pain Narrative: Ms. Jadyn Berkowitz is a 70-year-old female with past medical history significant for parkinsonism, hypertension, hyperlipidemia, chronic cervical pain, knee pain, Lord cyst, osteoporosis, RLS and anxiety/depression who presents to the ER with worsening low back pain. The patient was seen in the emergency department on 09/19/2020 at which time she was diagnosed with a muscular strain and discharged following treatment with cyclobenzaprine and Toradol. Patient returns tonight with progressively worsening pain. She denies neurological deficits including radiating pain, saddle anesthesia, loss of bowel control. She does acknowledge urinary urgency stating she may lose control of urine while attempting to get to the bathroom and was diagnosed with UTI on her ER visit 3 days ago. The patient does have history of parkinsonism and has an unsteady gait at baseline but denies trauma or falls. She reports no fevers or chills, nasal congestion or sore throat. She does have chronic anterior neck pain she describes as wrapping across the front her neck submandibular which is followed by her primary care provider. She has had no complaints chest pain or palpitations, shortness of breath cough or wheezing. She denies epigastric or abdominal pain, nausea vomiting, diarrhea or constipation. The patient reports weakness since her last rotator cuff surgery with loss of muscle mass. She does endorse altered sensation of the left foot which has been chronic and described as blunted sensation with pins and needles. Upon arrival to the ER the patient's temperature 98.6?, heart rate of 84, blood pressure 146/72, respirations 16 saturating 99% on room air. Imaging obtained on 09/19/2020 identifies a subtle asymmetric widening of the distal coccyx with possible subtle step-off deformity which may represent subtle fracture versus artifact from positioning. Patient underwent CT scan finding and oblique oriented fracture through the S1 vertebral body extending into the right S1-S2 neuroforamen and the bilateral S2 vertebral body which is mildly angulated, bilateral ala fractures. Diffuse disc bulges with moderate bilateral neuroforaminal stenosis at L3-L4 through L5-S1, possible anterior epidural hematoma measuring up to 4 mm in thickness at the L4 and lower levels. On laboratory analysis the patient has white count of 6.7, hemoglobin 9.2 and hematocrit of 27.1 and platelets 289. Her PT is 11.9 with an INR of 1.0 and a PTT of 30. Chemistry finds a low sodium at 1:21 a.m. and low potassium at 3.2. Her BUN is 13 and creatinine 0.4 for a BUN creatinine ratio 32.5. She has a CRP of 3.0 and a sed rate of 57. COVID screening is negative. Dr. Boss, orthopedics, is contacted through the emergency department with the above CT findings reviewed and agrees to consult. In the ER the patient received Dilaudid for pain, 40 mEq KCL, normal saline 125 and 1 g Rocephin for previously identified urinary tract infection. The patient is admitted to the hospitalist service for intractable pain secondary to sacral fracture with ortho consult. Patient History Medical History ADD (attention deficit disorder) Anxiety Asthma Lord's cyst of knee Chicken pox (~1958) Depression Hives (~1999) HSV (herpes simplex virus) infection (~1977) Hypertension Melanoma (~2008) Neck pain of over 3 months duration Nocturia more than twice per night Osteoporosis (~2014) Parkinsonism (~2017) Plantar warts Pure hypercholesterolemia Restless leg Rheumatoid arthritis Seasonal allergies (~1975) Skin cancer (~2010) Surgical History Anesthesia Fractures (~05/2012) H/O melanoma excision (~2008) H/O vein stripping (~2003) History of repair of rotator cuff Family & Social History Family History Brother Age: 72 High cholesterol Brother Age: 64 High cholesterol Child Age: 43 History of skin cancer Child Age: 39 Arthritis Father Skin cancer Parkinson's disease dementia Arthritis Dementia Mother Dementia Hypertension Osteoporosis History of shingles Arthritis Sister Age: 58 Thyroid condition Grandfather No problems noted. Grandmother No problems noted. Safety & Behavioral: Feels Safe in Current Yes Environment Tobacco & Substance use: Smoking Status Never smoker alcohol intake never alcohol intake frequency holiday/special occasion Substance Use Type does not use Meds Home Medications and Allergies Home Medications Medication Instructions Recorded Confirmed Type aspirin 81 mg PO QDAY #30 ctb 02/14/16 08/13/20 History estradiol [Estrace] 0.01 % VAGINAL 2 X WEEK #42.5 gm 03/17/17 08/13/20 Rx acyclovir 400 mg tablet 400 mg PO TID #21 tab 04/05/19 08/13/20 Rx triamcinolone acetonide 0.025 % 1 applictn TOP BID #15 gram 04/05/19 08/13/20 Rx topical cream sertraline 100 mg tablet 150 mg PO DAILY #135 tab 11/20/19 09/23/20 Rx carbidopa 25 mg-levodopa 100 mg 1 tab PO TID #90 tab 03/25/20 09/23/20 Rx tablet gabapentin 300 mg capsule 900 mg PO BEDTIME PRN #90 cap 04/10/20 08/13/20 Rx lisinopril 10 mg tablet 10 mg PO DAILY #90 tab 04/10/20 09/23/20 Rx clonazepam 0.5 mg tablet See Rx Instructions .ROUTE 08/13/20 08/13/20 Rx .COMPLEX PRN #90 tablet hydroxyzine HCl 10 mg tablet See Rx Instructions .ROUTE 08/16/20 Rx .COMPLEX #30 tablet cyclobenzaprine 10 mg PO TID PRN #14 tab 09/19/20 Rx ketorolac 10 mg PO Q6H PRN #14 tab 09/19/20 Rx Allergies Allergy/AdvReac Type Severity Reaction Status Date / Time Sulfa (Sulfonamide Allergy Mild RASH Verified 09/19/20 16:05 Antibiotics) [SULFA (SULFONAMIDE ANTIBIOTICS)] Review of Systems Review of Systems ROS: Yes All systems reviewed with the patient and are negative except as otherwise documented Exam Vital Signs (past 8 hours): - 09/23/20 00:14 09/23/20 01:30 Temperature 98.4 F Pulse Rate 84 74 Respiratory Rate 18 18 Blood Pressure 177/86 H 174/86 H Pulse Oximetry 98 96 Oxygen Delivery Method Room Air Narrative Exam Narrative: GENERAL APPEARANCE: well developed, thin female with decreased muscle mass, BMI of 20.8, resting supine in bed pain adequately controlled. HEENT: Normocephalic, PERRLA, conjunctiva clear, EOMs intact without nystagmus, mucous membranes are dry and pink without lesions or exudate. NECK/THYROID: neck supple, no step-offs, no JVD,no thyromegaly, trachea midline. LYMPH NODES: no cervical or supraclavicular lymphadenopathy. SKIN: [place], warm and dry, no visible lesions, rashes, ulcerations, no skin tenting. HEART: regular rate and rhythm, S1-S2, no murmur, no rubs or gallops, brisk capillary refill, no edema LUNGS: clear to auscultation bilaterally, no coarseness crackles or wheezing, no cough present CHEST: Symmetrical movement, no accessory muscle use, good tidal volume. ABDOMEN: Soft, no distention, no abdominal tenderness, no guarding or peritoneal signs, no organomegaly, suprapubic discomfort on palpation with full bladder, active bowel tones. BACK: Lumbosacral pain on palpation, back pain listed with straight leg raise. EXTREMITIES: moves all extremities, strength is 5/5 and symmetrical, no deformities or joint effusions. NEUROLOGIC: AAO x3, cranial nerves II-XII grossly intact, decreased sensation plantar surface left foot. PSYCH: Drowsy, sedated, cooperative, behaviorally stable. Objective Labs Result Diagrams: 09/23/20 00:25 09/23/20 00:25 Labs: Laboratory Results - last 24 hr 09/23/20 09/23/20 09/23/20 00:25 00:25 00:25 WBC 6.7 RBC 3.41 L Hgb 9.2 L Hct 27.1 L MCV 79.3 L MCH 26.8 MCHC 33.9 RDW 15.7 H Plt Count 289 Neut % (Auto) 77.2 H Lymph % (Auto) 10.3 L [place] % (Auto) 7.8 Eos % (Auto) 3.9 Baso % (Auto) 0.8 Neut # (Auto) 5200 Lymph # (Auto) 700 L [place] # (Auto) 500 Eos # (Auto) 300 Baso # (Auto) 100 ESR 57 H PT 11.9 INR 1.0 APTT 30 Sodium 121 L Potassium 3.2 L Chloride 89 L Carbon Dioxide 26 BUN 13 Creatinine 0.40 L Estimated GFR > 60.0 BUN/Creatinine Ratio 32.5 H Glucose 117 H Calcium 8.9 C-Reactive Protein 3.0 H Assessment & Plan Assessment & Plan narrative: Ms. Jadyn Berkowitz is a 70-year-old female with past medical history significant for parkinsonism, hypertension, hyperlipidemia, chronic cervical pain, knee pain, Lord cyst, osteoporosis, RLS and anxiety/depression who presents to the ER with worsening low back pain. 1. Intractable low backpain, acute, present on admission, active. -pain has localized low back pain without radiculopathy related to sacral fracture discussed below. -ordered Tylenol 975 mg scheduled every 8 hours. -ordered oxycodone 5-10 mg by mouth every 4 hours as needed for pain. Ordered Dilaudid 0.5 mg every 4 hours as needed for breakthrough pain. -the patient has been taking gabapentin 900 mg at bedtime, ordered gabapentin 300 mg 3 times daily and may titrate upward as needed. 2. Sacral fracture, nontraumatic, possible pathologic secondary to osteoporosis, present on admission, active. -CT scan identifies oblique oriented fracture through the S1 vertebral body extending into the right S1-S2 neuroforamen and the bilateral S2 vertebral body which is mildly angulated, bilateral ala fractures. Diffuse disc bulges with moderate bilateral neuroforaminal stenosis at L3-L4 through L5-S1, possible anterior epidural hematoma measuring up to 4 mm in thickness at the L4 and lower levels. -Dr. Boss is contacted through the emergency department and agrees to consult recommending conservative treatment. We appreciate his evaluation recommendations. -patient denies trauma, she has a history of osteoporosis is not currently on supplementation, ordered a vitamin D 25 OH and PTH intact with calcium. -Requested PT and OT to consult, evaluate and treat. 3. Hyponatremia, acute, present on admission, active -the patient is not on diuretics however appears dry on clinical exam and has a BUN creatinine ratio of 32.5. -ordered normal saline at 125 cc/hour. -will obtain a random urine sodium. 4. Hypokalemia, acute, present on admission, active. -initial laboratory analysis finds a potassium of 3.2. The patient receives KCl rider 40 mEq IV x1 in the ER. -will recheck electrolytes in the morning. 5. Urinary tract infection, acute, present on admission, active. -patient was found on admission of 09/19/2020 to have leuko urea with many bacteria. Symptomatic with frequency and urgency -urine culture from is positive for E coli. -based on sensitivities she is started on Rocephin 1 g IV which will be continued 1 g IV daily for 5 days. 6. Parkinson's disease, chronic, stable. -will continue patient's home regimen of carbidopa levodopa 25/100 3 times daily. 7. Hypertension, chronic, stable. -on admission the patient is a blood pressure of 146/72 and is labile commensurate with pain. -patient has been previously well controlled per primary care provider documentation. Will continue lisinopril 10 mg daily. 8. Hyperlipidemia, chronic. -the patient has known elevated cholesterol levels however she has been reluctant to initiate statin therapy. Patient is attempting lifestyle change with Mediterranean diet, increased exercise and dietary supplement level follow- up with her primary care provider. 9. Anxiety and depression, chronic, stable -continue patient's home regimen of sertraline 150 mg daily. VTE prophylaxis: Contraindicated due to small final epidural hematoma. IV fluid: Normal saline 125 cc/hour. Diet: Heart healthy Code status: Full code, patient designates her son Jamir to be her surrogate decision maker. The patient is admitted to the hospital due to the severity of her symptoms and electrolyte imbalance requiring monitored repletion prevent complications or untoward events. The patient is admitted as an inpatient with expected length of stay to be greater than 2 midnights. Scores GCS [place] coma scale eye opening: Spontaneous [place] coma scale verbal response: Orientated [place] coma scale motor response: Obey commands [place] coma scale total score: 15 Quality MIPS - Admit I confirm the patient?s Advance Care Plan is present, Code status is documented, Surrogate decision maker is in patient?s record [If Yes, STOP here]: Yes
[2020-09-23] MEDS: HYDROMORPHONE 0.5 MG INJ (02:40)
--- NOTE | 2020-09-23 02:59 | PC.NURSE ---
Pt took home med carbidopa-levodopa with ok from Dr Mcmullen
[2020-09-23 03:01] LABS: COVID19 - ADMIT (NP swab/PCR) Negative (Negative)
[2020-09-23 03:21] LABS: Magnesium 1.9 mg/dL (1.6-2.3)
[2020-09-23] MEDS: ACETAMINOPHEN 325 MG TABLET 975 MG PO ×3 (03:33→19:12)
[2020-09-23 03:35] LABS: Sodium Urine Random 53 mmol/L (30-90)
[2020-09-23 05:21] LABS: Add Manual Diff / Slide Review NO; Basophils Absolute Auto 100 /uL (0-100); Basophils Percent Auto 1.7 % (0-2); Eosinophils Absolute Auto 300 /uL (0-450); Eosinophils Percent Auto 5.2 % (2-4); Hematocrit 27.5 % (36-46); Hemoglobin 8.9 g/dL (12.0-16.0); Lymphocytes Absolute Auto 1000 /uL (1100-4500); Lymphocytes Percent Auto 17.8 % (25-40); Mean Corpuscular HGB Conc 32.4 % (30-36); Mean Corpuscular Hemoglobin 26.3 PG (26-34); Monocytes Absolute Auto 600 /uL (0-900); Neutrophils Absolute Auto 3700 /uL (1500-7000); Neutrophils Percent Auto 65.3 % (50-75); Platelet Count 278 X10^3/uL (150-400); Red Cell Distribution Width 15.5 % (11.6-14.8); White Blood Cell Count 5.7 X10^3/uL (4.5-11.0)
[2020-09-23 05:31] LABS: BUN Creatinine Ratio 22.9 (6-22); Blood Urea Nitrogen 11 mg/dL (7-17); Calcium 8.8 mg/dL (8.4-10.2); Carbon Dioxide 26 mmol/L (22-32); Chloride 94 mmol/L (98-107); Estimated Glomerular Filt Rate > 60.0 mL/min (>60); Glucose 101 mg/dL (80-110); HEMOLYSIS < 15 (0-50); Potassium 3.8 mmol/L (3.4-5.1); Sodium 127 mmol/L (137-145)
[2020-09-23] MEDS: CYCLOBENZAPRINE 10 MG TABLET PO ×3 (05:59→21:38)
--- NOTE | 2020-09-23 06:12 | PC.NURSE ---
0600- Patient awoke calling out for help. Patient states she is having muscle spasms in her legs which are drawn up and she is in obvious discomfort. Patient assisted with repositioning and given a muscle relaxer per orders. Patient assisted to bedpan. Patient states her pain is tolerable if she does not move or weight bear. Will monitor.
--- NOTE | 2020-09-23 07:16 | PM.PN.1 ---
Subjective Subjective Date Patient Seen: 09/23/20 Time Patient Seen: 07:16 Interval history: Patient states she is doing well and is no acute distress. She reports pain and spasms in her lower back. The patient reports that as long as she is inactive the pain is manageable. She reports good sensation throughout the bilateral lower extremities. At this moment she denies fever, chest pain, nausea, shortness of breath, or chills. Exam Vital Signs (past 8 hours): - 09/23/20 00:14 09/23/20 01:30 09/23/20 03:06 Temperature 98.4 F 97.2 F L Pulse Rate 84 74 70 Respiratory Rate 18 18 10 L Blood Pressure 177/86 H 174/86 H 169/87 H Pulse Oximetry 98 96 96 09/23/20 03:12 Temperature Pulse Rate Respiratory Rate Blood Pressure Pulse Oximetry 96 Oxygen Delivery Method Room Air Narrative Exam Narrative: 70-year-old female admitted for hyponatremia, acute UTI, reporting back pain and spasms. Patient is resting comfortably in bed, is in no acute distress, and is alert and oriented x3. Good sensation to light touch throughout the bilateral lower extremities. Calves are soft and nontender, negative Homans sign. Capillary refill less than 2 seconds. Exam limited due to the patient repeatedly falling asleep. Const General: cooperative, healthy appearing and comfortable Resp Effort & Inspection: normal respiratory effort and able to speak in complete sentences Skin General: no rashes or lesions noted Objective Labs Result Diagrams: 09/23/20 04:50 09/23/20 04:50 Labs: Laboratory Results - last 24 hr 09/23/20 09/23/20 09/23/20 00:25 00:25 00:25 WBC 6.7 RBC 3.41 L Hgb 9.2 L Hct 27.1 L MCV 79.3 L MCH 26.8 MCHC 33.9 RDW 15.7 H Plt Count 289 Neut % (Auto) 77.2 H Lymph % (Auto) 10.3 L [place] % (Auto) 7.8 Eos % (Auto) 3.9 Baso % (Auto) 0.8 Neut # (Auto) 5200 Lymph # (Auto) 700 L [place] # (Auto) 500 Eos # (Auto) 300 Baso # (Auto) 100 ESR 57 H PT 11.9 INR 1.0 APTT 30 Sodium 121 L Potassium 3.2 L Chloride 89 L Carbon Dioxide 26 BUN 13 Creatinine 0.40 L Estimated GFR > 60.0 BUN/Creatinine Ratio 32.5 H Glucose 117 H Calcium 8.9 Magnesium C-Reactive Protein 3.0 H 25-OH Vitamin D Total Ur Random Sodium SARS-CoV-2 (PCR) 09/23/20 09/23/20 09/23/20 00:25 01:15 01:40 WBC RBC Hgb Hct MCV MCH MCHC RDW Plt Count Neut % (Auto) Lymph % (Auto) [place] % (Auto) Eos % (Auto) Baso % (Auto) Neut # (Auto) Lymph # (Auto) [place] # (Auto) Eos # (Auto) Baso # (Auto) ESR PT INR APTT Sodium Potassium Chloride Carbon Dioxide BUN Creatinine Estimated GFR BUN/Creatinine Ratio Glucose Calcium Magnesium 1.9 C-Reactive Protein 25-OH Vitamin D Total Ur Random Sodium 53 SARS-CoV-2 (PCR) Negative 09/23/20 09/23/20 09/23/20 04:50 04:50 04:50 WBC 5.7 RBC 3.40 L Hgb 8.9 L Hct 27.5 L MCV 81.0 MCH 26.3 MCHC 32.4 RDW 15.5 H Plt Count 278 Neut % (Auto) 65.3 Lymph % (Auto) 17.8 L [place] % (Auto) 10.0 Eos % (Auto) 5.2 H Baso % (Auto) 1.7 Neut # (Auto) 3700 Lymph # (Auto) 1000 L [place] # (Auto) 600 Eos # (Auto) 300 Baso # (Auto) 100 ESR PT INR APTT Sodium 127 L Potassium 3.8 Chloride 94 L Carbon Dioxide 26 BUN 11 Creatinine 0.48 L Estimated GFR > 60.0 BUN/Creatinine Ratio 22.9 H Glucose 101 Calcium 8.8 Magnesium C-Reactive Protein 25-OH Vitamin D Total 47.0 Ur Random Sodium SARS-CoV-2 (PCR) [facility] Medical History ADD (attention deficit disorder) Anxiety Asthma Lord's cyst of knee Chicken pox (~1958) Depression Hives (~1999) HSV (herpes simplex virus) infection (~1977) Hypertension Melanoma (~2008) Neck pain of over 3 months duration Nocturia more than twice per night Osteoporosis (~2014) Parkinsonism (~2017) Plantar warts Pure hypercholesterolemia Restless leg Rheumatoid arthritis Seasonal allergies (~1975) Skin cancer (~2010) Surgical History Anesthesia Fractures (~05/2012) H/O melanoma excision (~2008) H/O vein stripping (~2003) History of repair of rotator cuff Family History Brother Age: 72 High cholesterol Brother Age: 64 High cholesterol Child Age: 43 History of skin cancer Child Age: 39 Arthritis Father Skin cancer Parkinson's disease dementia Arthritis Dementia Mother Dementia Hypertension Osteoporosis History of shingles Arthritis Sister Age: 58 Thyroid condition Grandfather No problems noted. Grandmother No problems noted. Social History household members: children Smoking Status: Never smoker alcohol intake: never substance use type: does not use Assessment & Plan Assessment & Plan narrative: Patient is doing well and should continue working on ambulation with a front wheel walker. Patient is to continue current pain control regimen as is currently managing her pain effectively. Per Dr. Boss, based off the imaging results the patient's condition is nonsurgical. Quality VTE Deep Vein Thrombosis/Pulmonary Embolism Present on Admission: No
[2020-09-23] MEDS: OXYCODONE IR 10 MG TABLET PO ×3 (07:35→21:38)
[2020-09-23] MEDS: SERTRALINE 50 MG TABLET 150 MG PO (08:14)
[2020-09-23] MEDS: lisinopriL 10 MG TABLET PO (08:14)
[2020-09-23] MEDS: CARBIDOPA-LEVODOPA 25/100 TABLET 1 EACH PO ×3 (08:15→20:26)
[2020-09-23] MEDS: GABAPENTIN 300 MG CAPSULE PO ×3 (08:15→20:26)
[2020-09-23] MEDS: DOCUSATE 100 MG CAPSULE PO (08:18)
--- NOTE | 2020-09-23 10:14 | PM.CN ---
History of Present Illness Consult details Date Patient Seen: 09/23/20 Time Patient Seen: 10:15 Chief complaint: Back Pain Reason for consult: Low back pain after repeated falls Requesting provider: Viktor Mcmullen Narrative: The patient is a 70-year-old woman who reports 4 different falls at her home last . She subsequently has moved in with her son who has apartment is apparently quite small and she is able to brace herself against mejia. She reports that she has had significant low back pain recently with some radiation into the right buttock but not into the legs. She denies bowel and bladder dysfunction although does have likely age related stress incontinence issues. She was seen in the emergency room over the last week and has been admitted due to failure to be able to care for herself, increasing pain and fall risk. X-rays and CT scan were obtained. The CT scan revealed likely two different sacral fractures. Meds Home Medications and Allergies Home Medications Medication Instructions Recorded Confirmed Type aspirin 81 mg PO QDAY #30 ctb 02/14/16 08/13/20 History estradiol [Estrace] 0.01 % VAGINAL 2 X WEEK #42.5 gm 03/17/17 08/13/20 Rx acyclovir 400 mg tablet 400 mg PO TID #21 tab 04/05/19 08/13/20 Rx triamcinolone acetonide 0.025 % 1 applictn TOP BID #15 gram 04/05/19 08/13/20 Rx topical cream sertraline 100 mg tablet 150 mg PO DAILY #135 tab 11/20/19 09/23/20 Rx carbidopa 25 mg-levodopa 100 mg 1 tab PO TID #90 tab 03/25/20 09/23/20 Rx tablet gabapentin 300 mg capsule 900 mg PO BEDTIME PRN #90 cap 04/10/20 08/13/20 Rx lisinopril 10 mg tablet 10 mg PO DAILY #90 tab 04/10/20 09/23/20 Rx clonazepam 0.5 mg tablet See Rx Instructions .ROUTE 08/13/20 08/13/20 Rx .COMPLEX PRN #90 tablet hydroxyzine HCl 10 mg tablet See Rx Instructions .ROUTE 08/16/20 Rx .COMPLEX #30 tablet cyclobenzaprine 10 mg PO TID PRN #14 tab 09/19/20 Rx ketorolac 10 mg PO Q6H PRN #14 tab 09/19/20 Rx Allergies Allergy/AdvReac Type Severity Reaction Status Date / Time Sulfa (Sulfonamide Allergy Mild RASH Verified 09/19/20 16:05 Antibiotics) [SULFA (SULFONAMIDE ANTIBIOTICS)] Review of Systems Review of Systems ROS: Yes All systems reviewed with the patient and are negative except as otherwise documented Exam Vital Signs (past 8 hours): - 09/23/20 03:06 09/23/20 03:12 09/23/20 07:06 Temperature 97.2 F L 98.6 F Pulse Rate 70 72 Respiratory Rate 10 L 18 Blood Pressure 169/87 H 118/59 L Pulse Oximetry 96 96 98 09/23/20 08:14 Temperature Pulse Rate 76 Respiratory Rate Blood Pressure 118/59 L Pulse Oximetry Oxygen Delivery Method Room Air Narrative Exam Narrative: On physical examination the patient is minimally tender over the midline lumbar spine and over the sacrum. There is some mild tenderness into the right buttock. Lower extremity light touch is intact throughout. She has 5/5 strength in quadriceps, hamstrings, tibialis anterior, gastrocnemius soleus and extensor hallucis longus muscles. Reflexes are 3+ and symmetric in the knees, 2+ and symmetric in the ankles and toes are downgoing. Objective Labs Result Diagrams: 09/23/20 04:50 09/23/20 04:50 Labs: Laboratory Results - last 24 hr 09/23/20 09/23/20 09/23/20 00:25 00:25 00:25 WBC 6.7 RBC 3.41 L Hgb 9.2 L Hct 27.1 L MCV 79.3 L MCH 26.8 MCHC 33.9 RDW 15.7 H Plt Count 289 Neut % (Auto) 77.2 H Lymph % (Auto) 10.3 L [place] % (Auto) 7.8 Eos % (Auto) 3.9 Baso % (Auto) 0.8 Neut # (Auto) 5200 Lymph # (Auto) 700 L [place] # (Auto) 500 Eos # (Auto) 300 Baso # (Auto) 100 ESR 57 H PT 11.9 INR 1.0 APTT 30 Sodium 121 L Potassium 3.2 L Chloride 89 L Carbon Dioxide 26 BUN 13 Creatinine 0.40 L Estimated GFR > 60.0 BUN/Creatinine Ratio 32.5 H Glucose 117 H Calcium 8.9 Magnesium C-Reactive Protein 3.0 H 25-OH Vitamin D Total Ur Random Sodium SARS-CoV-2 (PCR) 09/23/20 09/23/20 09/23/20 00:25 01:15 01:40 WBC RBC Hgb Hct MCV MCH MCHC RDW Plt Count Neut % (Auto) Lymph % (Auto) [place] % (Auto) Eos % (Auto) Baso % (Auto) Neut # (Auto) Lymph # (Auto) [place] # (Auto) Eos # (Auto) Baso # (Auto) ESR PT INR APTT Sodium Potassium Chloride Carbon Dioxide BUN Creatinine Estimated GFR BUN/Creatinine Ratio Glucose Calcium Magnesium 1.9 C-Reactive Protein 25-OH Vitamin D Total Ur Random Sodium 53 SARS-CoV-2 (PCR) Negative 09/23/20 09/23/20 09/23/20 04:50 04:50 04:50 WBC 5.7 RBC 3.40 L Hgb 8.9 L Hct 27.5 L MCV 81.0 MCH 26.3 MCHC 32.4 RDW 15.5 H Plt Count 278 Neut % (Auto) 65.3 Lymph % (Auto) 17.8 L [place] % (Auto) 10.0 Eos % (Auto) 5.2 H Baso % (Auto) 1.7 Neut # (Auto) 3700 Lymph # (Auto) 1000 L [place] # (Auto) 600 Eos # (Auto) 300 Baso # (Auto) 100 ESR PT INR APTT Sodium 127 L Potassium 3.8 Chloride 94 L Carbon Dioxide 26 BUN 11 Creatinine 0.48 L Estimated GFR > 60.0 BUN/Creatinine Ratio 22.9 H Glucose 101 Calcium 8.8 Magnesium C-Reactive Protein 25-OH Vitamin D Total 47.0 Ur Random Sodium SARS-CoV-2 (PCR) Assessment & Plan Assessment & Plan narrative: The patient has a history of several falls approximately 3 months ago. She does not recall a recent episode of losing her balance and falling to the ground. She appears to have sacral fractures as outlined in her CT report. On the lateral x-ray of the sacrum there also appears to potentially be an old fracture with some residual angulation near the coccyx. She is neurologically intact. These fractures can be treated non operatively. I would suggest she see Physical therapy and Occupational therapy for training with a walker and work on fall prevention and proprioception. If she has continued discomfort in the lumbar spine in approximately a month despite appropriate non operative treatment with therapy she can be seen in our office at [facility] by Dr. Chito Carver for a consultation regarding her back. I have discussed the case with Dr. Carver and he has reviewed the CT scan independently as have I. COVID-19 COVID-19 status: Negative Result date/Date tested (Pos, Neg/Pending): 09/23/20 Time Spent With Patient Time with patient: 15-24 minutes
--- NOTE | 2020-09-23 10:28 | PC.NURSE ---
Upon initial assesment, pt calling out and thrashing about in bed reporting muscle cramps in bilateral lower extremities- attempts to get pt comfortable in bed with positioning and pillows ineffective- given 10mg po oxycodone per md order and then followed by routine am rx: gabapentin and carba-levodopa - I spoke to MD and received an order for po robaxin but pt resting comfortably on left side. She is working with PT @ present
--- NOTE | 2020-09-23 10:32 | PT.IIE ---
Current Diagnoses Hypo-osmolality and hyponatremia (09/23/20) Surgical History (Last Reviewed 09/23/20 @ 10:18 by Sal Boss MD) Anesthesia Fractures (~05/2012) H/O melanoma excision (~2008) H/O vein stripping (~2003) History of repair of rotator cuff Medical History (Last Reviewed 09/23/20 @ 10:18 by Sal Boss MD) ADD (attention deficit disorder) Anxiety Asthma Lord's cyst of knee Chicken pox (~1958) Depression Hives (~1999) HSV (herpes simplex virus) infection (~1977) Hypertension Melanoma (~2008) Neck pain of over 3 months duration Nocturia more than twice per night Osteoporosis (~2014) Parkinsonism (~2017) Plantar warts Pure hypercholesterolemia Restless leg Rheumatoid arthritis Seasonal allergies (~1975) Skin cancer (~2010) Physical Therapy Inpatient Evaluation/Re-Eval M1 PT/OT-IP Prior Functional Status Start: 09/23/20 10:59 Freq: NEEDED Status: Active Protocol: Document 09/23/20 11:00 [facility] (Rec: 09/23/20 11:22 [facility] [id number]) Medical Review Prior Functional Status Medical History Reviewed Yes Communication Independent Mobility and Gait Pt states in the past week and a half has been using treking poles due to her increased sacral pain. Otherwise, pt states uses the mejia for balance in her son's house. Activities of Daily Living and IADL's Pt states able to completely do all her ADL's, assist with IADl's, and drives minimally to take her grandson to the [place]. Prior Functional Level (Other details) Pt moved to her son's house since 02/2020. pt states her 85 year old ex- also stays at the house. Social History Household Members children Living Arrangements House Number of Floors (Floors) One Floor Number of Stairs To Enter/Railing? No steps to enter. Home Environment Standard Height Toilet,Tub/ Shower Doors Home Equipment Front Wheel Walker Additional Social History Comment Pt states has trekking poles. M2 PT-IP Current Condition Start: 09/23/20 08:21 Freq: NEEDED Status: Active Protocol: Document 09/23/20 10:32 AW (Rec: 09/23/20 11:38 AW [id number]) Physical Therapy Current Condition Current Condition Evaluation Date 09/23/20 Treatment Diagnosis B sacral fractures; LBP; PD; UTI; difficulty in walking Onset Date 09/19/20 Weight Bearing Status Weight Bearing Status Weight Bear as Tolerated M3 PT-IP Subjective Start: 09/23/20 08:21 Freq: NEEDED Status: Active Protocol: Document 09/23/20 10:32 AW (Rec: 09/23/20 11:38 AW [id number]) Subjective Physical Therapy Visit Type Type Initial Evaluation Visit Start Time 09:48 Visit Stop Time 10:32 Total Visit Minutes 44 Notes Co-eval with OT. Pt had dose of carbidopa/levodopa within the past one hour. Ortho arrived for brief assessment during tx and stated no precautions. Pt is able to WBAT with walker. Number of LEHR CUTTER Visits 0 Physical Therapy Visit Comments Patient Comments Pt is willing to participate with PT Patient Goals Pt may be open to rehab/SNF Therapy Pain Assessment Pain When Pain Assessed During Mobility Pain Present Pain Present Pain Reported Location Lower Back Intensity 10 Scale Used Numeric (0 - 10) Pain Behaviors Calling Out,Facial Grimacing, Restlessness,Wincing Pain Management Techniques Re-positioning,Timing of Activity with Medications M4 PT-IP Mobility and Gait Start: 09/23/20 08:21 Freq: NEEDED Status: Active Protocol: Document 09/23/20 10:32 AW (Rec: 09/23/20 11:38 AW [id number]) PT-Bed Mobility Assessment Supine to Sit Supine to Sit Minimal Assistance,1 Person Assistance Sit to Supine Sit to Supine Minimal Assistance,1 Person Assistance Scooting Scooting to Edge of Bed Contact Guard Assistance PT-Transfer Assessment Sit to and From Stand Sit to and from Stand Minimal Assistance,1 Person Assistance,Use of Upper Extremities Equipment Transfer Assistive Device Gait Belt,Front Wheeled Walker Orthotic/Prosthetic Devices or Brace: No Transfers Transfer Destination Bed,Bedside Commode Transfer Technique Stand Step Pivot Transfer Ability Level of Assist Minimal Assistance,1 Person Assistance Comments Mobility Comments Pt was lying on her left side as PT and OT arrived. She attempted to sit up but complained of immediate cramping in her right buttock as her legs moved off the bed. Instead, she rolled to her right side and tried to dangle her legs in sidelying but complained of deep buttock pain on the other side. She then shifted herself diagonally on the bed in supine and needed min assist to pull up to long sitting with complaint of increased pain in sitting. Pt scooted to EOB CGA and completed sit to stand min A x 1. She used the FWW to transfer min A x [address] [facility]. Pt was highly reactive in sitting and attempted to shift her weight several times but was able to void. She stood from the commode min A x 1 and TOOL POLISHING MACHINE OPERATOR provided total assist with pericare as pt did not feel she could reach. Pt agreed to ambulate with FWW. She walked around the bed needing cues for positioning herself within the walker frame as she tended to get too close to the front. She ambulated with step-to pattern, leading with her left foot. WB was primarily with her UE through the walker as pt attempted to limit BLE WB. She returned ultimately to the left side of the bed and transferred back to supine min A x 1. Pt was left with call light and all needs in reach, bed alarm on for safety. Gait Assessment Gait Gait Assistance Required: Minimum Assistance,1 Person Assist Distance (Feet) 15 Able to Maintain Weight Bearing Status Yes During Gait Assistive Devices Assistive Device Gait Belt,Front Wheeled Walker Orthotic/Prosthetic Devices or Brace: No Gait Deviations General Gait Pattern Antalgic,Decreased Stride Length,Decreased Feet Clearance,Step-to Gait Factors Limiting Gait Function Factors Limiting Gait Function Decreased Activity Tolerance, Decreased Sensation,Pain,Poor Balance Comments Gait Comments See mobility comments for details. Stair Climbing Assessment Comments Stair Climbing Comments Not assessed. Pt states there are no stairs at home. PT-Balance Assessment Sitting Balance and Reactions Static Sitting Balance Ability Fair Dynamic Sitting Balance Ability Poor Standing Balance and Reactions Static Standing Balance Ability Poor Dynamic Standing Balance Ability Poor Device Used FWW Comments Other Balance Tests/Deviations/Treatment Pt limited in sitting and : standing secondary to pain. M5 PT-IP Objective Assessments Start: 09/23/20 08:21 Freq: NEEDED Status: Active Protocol: Document 09/23/20 10:32 AW (Rec: 09/23/20 11:38 AW [id number]) Orientation Orientation/Cognition Level of Alertness Alert Orientation Name,Day of Week,Place, Situation Language Function Ability No Deficits Noted Safety Awareness Understands Safety Issues Memory Description No Deficits Noted Gross Range of Motion Upper Extremity ROM Assessment Right Impaired Impairments Recent R rotator cuff surgery with limitations in RUE ROM ~ 110 degrees elevation all planes Lower Extremity ROM Assessment Within Functional Limits Strength Lower Extremity Strength Assessment Within Functional Limits Comments Strength Comments Grossly 4+/5 BLE without unilateral deficit. Sensation Assessment Sensation Gross Sensation Right LE Impaired,Left LE Impaired Light Touch Impaired Sensation Description Numbness Comments Sensation Comments Pt complains of dull light touch sensation in bilateral feel for the past couple of years. Muscle Tone Muscle Tone WNL Yes M6 PT-IP Treatment Start: 09/23/20 08:21 Freq: NEEDED Status: Active Protocol: Document 09/23/20 10:32 AW (Rec: 09/23/20 11:38 AW [id number]) Physical Therapy Treatment Education Education Provided Weight Bearing Status,Safety Other Treatments Other Treatment Performed Educated pt on current level of assist required for safe mobility and recommendation for FWW at this time. M7 PT-IP Assessment and Plan Start: 09/23/20 08:21 Freq: NEEDED Status: Active Protocol: Document 09/23/20 10:32 AW (Rec: 09/23/20 11:38 AW [id number]) PT Summary Assessment and Plan Potential Rehabilitation Potential Good Status of Condition at Evaluation Evolving Summary Impairments Pain,Strength,Balance, Sensation,Bed Mobility, Transfers,Gait Assessment Summary Jadyn is a 70 yo woman with Parkinson's disease and history of multiple falls in the past one year. She is currently admitted with bilateral sacral fractures, acute UTI, and unremitting low back/sacral pain. She is typically ambulatory without assistive device but admits to using trekking poles at home recently due to increasing pain. On evaluation, pt required min assist for all mobility with FWW. Gait speed was insufficient for safe household mobility and was notable for heavy BUE weightbearing on the walker frame. Pt lives with family who can provide some assist at home but not 21/12. In the context of impaired mobility and history of multiple falls in the past year, pt would benefit from SNF rehab to improve strength and mobility independence before safe return home. If she goes home, services should be considered. Goals Bed Mobility Goal Standby Assistance Transfer Goal Standby Assistance,Front Wheeled Walker Gait Goal Standby Assistance,Front Wheel Walker Gait Distance 100 Other Goals LTG: improve gait to 200 feet with LRAD SBA Frequency of Treatment Frequency Of Treatment Twice a Day Treatment Plan Physical Therapy Treatment Plan Bed Mobility Training,Transfer Training,Gait Training, Therapeutic Exercise,Balance Retraining,Discharge Planning, Hot or Cold Pack,Neuromuscular Re-ed Other Recommendations and Next Treatment bed mobility; gait training Focus with FWW Precautions Other Precautions Falls Recommendations To Nursing Amount of Assist Needed 1 Person Assist Discharge Recommendations PT Discharge Recommendations SNF Rehab Other Discharge Recommendations HH if pt does not go to SNF Equipment Needed for Home Before BSC, tub transfer bench Discharge Transportation Needs at Discharge Private Vehicle,Wheelchair/ Cabulance
--- NOTE | 2020-09-23 10:32 | PT.IIE ---
Current Diagnoses Hypo-osmolality and hyponatremia (09/23/20) Surgical History (Last Reviewed 09/23/20 @ 10:18 by Sal Boss MD) Anesthesia Fractures (~05/2012) H/O melanoma excision (~2008) H/O vein stripping (~2003) History of repair of rotator cuff Medical History (Last Reviewed 09/23/20 @ 10:18 by Sal Boss MD) ADD (attention deficit disorder) Anxiety Asthma Lord's cyst of knee Chicken pox (~1958) Depression Hives (~1999) HSV (herpes simplex virus) infection (~1977) Hypertension Melanoma (~2008) Neck pain of over 3 months duration Nocturia more than twice per night Osteoporosis (~2014) Parkinsonism (~2017) Plantar warts Pure hypercholesterolemia Restless leg Rheumatoid arthritis Seasonal allergies (~1975) Skin cancer (~2010) Physical Therapy Inpatient Evaluation/Re-Eval M1 PT/OT-IP Prior Functional Status Start: 09/23/20 10:59 Freq: NEEDED Status: Active Protocol: Document 09/23/20 11:00 [facility] (Rec: 09/23/20 11:22 [facility] [id number]) Medical Review Prior Functional Status Medical History Reviewed Yes Communication Independent Mobility and Gait Pt states in the past week and a half has been using treking poles due to her increased sacral pain. Otherwise, pt states uses the mejia for balance in her son's house. Activities of Daily Living and IADL's Pt states able to completely do all her ADL's, assist with IADl's, and drives minimally to take her grandson to the [employer] [place]. Prior Functional Level (Other details) Pt moved to her son's house since 02/2020. pt states her 85 year old ex- also stays at the house. Social History Household Members children Living Arrangements House Number of Floors (Floors) One Floor Number of Stairs To Enter/Railing? No steps to enter. Home Environment Standard Height Toilet,Tub/ Shower Doors Home Equipment Front Wheel Walker Additional Social History Comment Pt states has trekking poles. M2 PT-IP Current Condition Start: 09/23/20 08:21 Freq: NEEDED Status: Active Protocol: Document 09/23/20 10:32 AW (Rec: 09/23/20 11:38 AW [id number]) Physical Therapy Current Condition Current Condition Evaluation Date 09/23/20 Treatment Diagnosis B sacral fractures; LBP; PD; UTI; difficulty in walking Onset Date 09/19/20 Weight Bearing Status Weight Bearing Status Weight Bear as Tolerated M3 PT-IP Subjective Start: 09/23/20 08:21 Freq: NEEDED Status: Active Protocol: Document 09/23/20 10:32 AW (Rec: 09/23/20 11:38 AW [id number]) Subjective Physical Therapy Visit Type Type Initial Evaluation Visit Start Time 09:48 Visit Stop Time 10:32 Total Visit Minutes 44 Notes Co-eval with OT. Pt had dose of carbidopa/levodopa within the past one hour. Ortho arrived for brief assessment during tx and stated no precautions. Pt is able to WBAT with walker. Number of CLINICAL PROFESSOR Visits 0 Physical Therapy Visit Comments Patient Comments Pt is willing to participate with PT Patient Goals Pt may be open to rehab/SNF Therapy Pain Assessment Pain When Pain Assessed During Mobility Pain Present Pain Present Pain Reported Location Lower Back Intensity 10 Scale Used Numeric (0 - 10) Pain Behaviors Calling Out,Facial Grimacing, Restlessness,Wincing Pain Management Techniques Re-positioning,Timing of Activity with Medications M4 PT-IP Mobility and Gait Start: 09/23/20 08:21 Freq: NEEDED Status: Active Protocol: Document 09/23/20 10:32 AW (Rec: 09/23/20 11:38 AW [id number]) PT-Bed Mobility Assessment Supine to Sit Supine to Sit Minimal Assistance,1 Person Assistance Sit to Supine Sit to Supine Minimal Assistance,1 Person Assistance Scooting Scooting to Edge of Bed Contact Guard Assistance PT-Transfer Assessment Sit to and From Stand Sit to and from Stand Minimal Assistance,1 Person Assistance,Use of Upper Extremities Equipment Transfer Assistive Device Gait Belt,Front Wheeled Walker Orthotic/Prosthetic Devices or Brace: No Transfers Transfer Destination Bed,Bedside Commode Transfer Technique Stand Step Pivot Transfer Ability Level of Assist Minimal Assistance,1 Person Assistance Comments Mobility Comments Pt was lying on her left side as PT and OT arrived. She attempted to sit up but complained of immediate cramping in her right buttock as her legs moved off the bed. Instead, she rolled to her right side and tried to dangle her legs in sidelying but complained of deep buttock pain on the other side. She then shifted herself diagonally on the bed in supine and needed min assist to pull up to long sitting with complaint of increased pain in sitting. Pt scooted to EOB CGA and completed sit to stand min A x 1. She used the FWW to transfer min A x 1 to the [facility]. Pt was highly reactive in sitting and attempted to shift her weight several times but was able to void. She stood from the commode min A x 1 and ELEVATING GRADER OPERATOR provided total assist with pericare as pt did not feel she could reach. Pt agreed to ambulate with FWW. She walked around the bed needing cues for positioning herself within the walker frame as she tended to get too close to the front. She ambulated with step-to pattern, leading with her left foot. WB was primarily with her UE through the walker as pt attempted to limit BLE WB. She returned ultimately to the left side of the bed and transferred back to supine min A x 1. Pt was left with call light and all needs in reach, bed alarm on for safety. Gait Assessment Gait Gait Assistance Required: Minimum Assistance,1 Person Assist Distance (Feet) 15 Able to Maintain Weight Bearing Status Yes During Gait Assistive Devices Assistive Device Gait Belt,Front Wheeled Walker Orthotic/Prosthetic Devices or Brace: No Gait Deviations General Gait Pattern Antalgic,Decreased Stride Length,Decreased Feet Clearance,Step-to Gait Factors Limiting Gait Function Factors Limiting Gait Function Decreased Activity Tolerance, Decreased Sensation,Pain,Poor Balance Comments Gait Comments See mobility comments for details. Stair Climbing Assessment Comments Stair Climbing Comments Not assessed. Pt states there are no stairs at home. PT-Balance Assessment Sitting Balance and Reactions Static Sitting Balance Ability Fair Dynamic Sitting Balance Ability Poor Standing Balance and Reactions Static Standing Balance Ability Poor Dynamic Standing Balance Ability Poor Device Used FWW Comments Other Balance Tests/Deviations/Treatment Pt limited in sitting and : standing secondary to pain. M5 PT-IP Objective Assessments Start: 09/23/20 08:21 Freq: NEEDED Status: Active Protocol: Document 09/23/20 10:32 AW (Rec: 09/23/20 11:38 AW [id number]) Orientation Orientation/Cognition Level of Alertness Alert Orientation Name,Day of Week,Place, Situation Language Function Ability No Deficits Noted Safety Awareness Understands Safety Issues Memory Description No Deficits Noted Gross Range of Motion Upper Extremity ROM Assessment Right Impaired Impairments Recent R rotator cuff surgery with limitations in RUE ROM ~ 110 degrees elevation all planes Lower Extremity ROM Assessment Within Functional Limits Strength Lower Extremity Strength Assessment Within Functional Limits Comments Strength Comments Grossly 4+/5 BLE without unilateral deficit. Sensation Assessment Sensation Gross Sensation Right LE Impaired,Left LE Impaired Light Touch Impaired Sensation Description Numbness Comments Sensation Comments Pt complains of dull light touch sensation in bilateral feel for the past couple of years. Muscle Tone Muscle Tone WNL Yes M6 PT-IP Treatment Start: 09/23/20 08:21 Freq: NEEDED Status: Active Protocol: Document 09/23/20 10:32 AW (Rec: 09/23/20 11:38 AW [id number]) Physical Therapy Treatment Education Education Provided Weight Bearing Status,Safety Other Treatments Other Treatment Performed Educated pt on current level of assist required for safe mobility and recommendation for FWW at this time. M7 PT-IP Assessment and Plan Start: 09/23/20 08:21 Freq: NEEDED Status: Active Protocol: Document 09/23/20 10:32 AW (Rec: 09/23/20 11:38 AW [id number]) PT Summary Assessment and Plan Potential Rehabilitation Potential Good Status of Condition at Evaluation Evolving Summary Impairments Pain,Strength,Balance, Sensation,Bed Mobility, Transfers,Gait Assessment Summary Jadyn is a 70 yo woman with Parkinson's disease and history of multiple falls in the past one year. She is currently admitted with bilateral sacral fractures, acute UTI, and unremitting low back/sacral pain. She is typically ambulatory without assistive device but admits to using trekking poles at home recently due to increasing pain. On evaluation, pt required min assist for all mobility with FWW. Gait speed was insufficient for safe household mobility and was notable for heavy BUE weightbearing on the walker frame. Pt lives with family who can provide some assist at home but not 21/12. In the context of impaired mobility and history of multiple falls in the past year, pt would benefit from SNF rehab to improve strength and mobility independence before safe return home. If she goes home, services should be considered. Goals Bed Mobility Goal Standby Assistance Transfer Goal Standby Assistance,Front Wheeled Walker Gait Goal Standby Assistance,Front Wheel Walker Gait Distance 100 Other Goals LTG: improve gait to 200 feet with LRAD SBA Frequency of Treatment Frequency Of Treatment Once a Day Treatment Plan Physical Therapy Treatment Plan Bed Mobility Training,Transfer Training,Gait Training, Therapeutic Exercise,Balance Retraining,Discharge Planning, Hot or Cold Pack,Neuromuscular Re-ed Other Recommendations and Next Treatment bed mobility; gait training Focus with FWW Precautions Other Precautions Falls Recommendations To Nursing Amount of Assist Needed 1 Person Assist Discharge Recommendations PT Discharge Recommendations SNF Rehab Other Discharge Recommendations HH if pt does not go to SNF Equipment Needed for Home Before BSC, tub transfer bench Discharge Transportation Needs at Discharge Private Vehicle,Wheelchair/ Cabulance
--- NOTE | 2020-09-23 10:41 | OT.IP.EVAL ---
Current Diagnoses Hypo-osmolality and hyponatremia (09/23/20) Past Medical History (Last Reviewed 09/23/20 @ 10:18 by Sal Boss MD) ADD (attention deficit disorder) Anxiety Asthma Lord's cyst of knee Chicken pox (~1958) Depression Hives (~1999) HSV (herpes simplex virus) infection (~1977) Hypertension Melanoma (~2008) Neck pain of over 3 months duration Nocturia more than twice per night Osteoporosis (~2014) Parkinsonism (~2017) Plantar warts Pure hypercholesterolemia Restless leg Rheumatoid arthritis Seasonal allergies (~1975) Skin cancer (~2010) Surgical History (Last Reviewed 09/23/20 @ 10:18 by Sal Boss MD) Anesthesia Fractures (~05/2012) H/O melanoma excision (~2008) H/O vein stripping (~2003) History of repair of rotator cuff Occupational Therapy Inpatient Evaluation/Re-Eval M1 PT/OT-IP Prior Functional Status Start: 09/23/20 10:59 Freq: NEEDED Status: Active Protocol: Document 09/23/20 11:00 [facility] (Rec: 09/23/20 11:22 [facility] [id number]) Medical Review Prior Functional Status Medical History Reviewed Yes Communication Independent Mobility and Gait Pt states in the past week and a half has been using treking poles due to her increased sacral pain. Otherwise, pt states uses the mejia for balance in her son's house. Activities of Daily Living and IADL's Pt states able to completely do all her ADL's, assist with IADl's, and drives minimally to take her grandson to the [employer] [place]. Prior Functional Level (Other details) Pt moved to her son's house since 02/2020. Pt states her 85 year old ex- also stays at the house, but not sure if he is able to assist. Social History Household Members children Living Arrangements House Number of Floors (Floors) One Floor Number of Stairs To Enter/Railing? No steps to enter. Home Environment Standard Height Toilet,Tub/ Shower Doors Home Equipment Front Wheel Walker Additional Social History Comment Pt states has trekking poles. M2 OT-IP Current Condition Start: 09/23/20 10:59 Freq: Status: Active Protocol: Document 09/23/20 11:00 [facility] (Rec: 09/23/20 11:22 [facility] [id number]) Occupational Therapy Current Condition Current Condition Evaluation Date 09/23/20 Treatment Diagnosis Sacral Fx, low back pain, decreased mobility Diagnosis Onset Date 09/19/20 M3 OT- IP Subjective and Pain Start: 09/23/20 10:59 Freq: Status: Active Protocol: Document 09/23/20 11:00 [facility] (Rec: 09/23/20 11:22 [facility] [id number]) OT- Subjective Occupational Therapy Visit Type Type Initial Evaluation Visit Start Time 09:48 Visit Stop Time 10:41 Total Visit Minutes 53 Occupational Therapy Visit Comments Patient Comments Pt seen with PT for eval and pt agreed to get up. Patient/Caregiver Goals To get stronger and work on her balance. OT Pain Assessment Pain When Pain Assessed During Mobility Pain Present Pain Present Pain Reported Location Lower Back Intensity 10 Scale Used Numeric (0 - 10) M4 OT- IP ADL's Start: 09/23/20 10:59 Freq: Status: Active Protocol: Document 09/23/20 11:00 [facility] (Rec: 09/23/20 11:22 [facility] [id number]) OT [id number] Comments OT Self-Feeding Comments NOt at meal time. OT ADL-Grooming Comments OT Grooming Comments Pt refused at this time. OT ADL-Oral Care Comments Oral Care Comments Not performed. OT ADL-Dressing General Eval Lower Body Dressing Ability Maximum Assistance Comments OT Dressing Comments Pt needing assist to help luigi brief over her feet and up ove her hips. OT ADL-Toileting General Evaluation Toileting Ability Maximum Assistance Areas Needing Assistance Manage Clothing,Perform Perineal Hygiene Comments OT Toileting Comments Pt needing CGA/NONI to stand and another person to assist with hygiene and brief management needs as pt not able to let go of the FWW to assist. OT ADL-Bathing Comments OT Bathing Comments Sponge bath more appropriate at this time. Pt has a tub/ shower at home looking to be renovated to walk in shower. At this time if going home soon would benefit from a tub bench. Pt given information for equipment needs. M5 OT- IP IADL's Start: 09/23/20 10:59 Freq: Status: Active Protocol: Document 09/23/20 11:00 [facility] (Rec: 09/23/20 11:22 [facility] [id number]) OT-Instrumental Activities of Daily Living Deficits IADL Deficits Identified Deficits Meal Preparation Meal Preparation Caregiver Provides Assist Coil Maker Coil Maker Caregiver Provides Assist Driving Driving Comments At this time suggested not to drive. M6 OT- IP Functional Cognition Start: 09/23/20 10:59 Freq: Status: Active Protocol: Document 09/23/20 11:00 [facility] (Rec: 09/23/20 11:22 [facility] [id number]) Cognitive Factors Limiting Selfcare Function Cognitive Ability Level of Alertness Alert Patient Orientation Name,Place,Situation Ability to Follow Commands Able to Follow Multi-Step Commands Memory Description No Deficits Noted Safety Awareness No Deficits Noted Cognitive Comments Cognitive Assessment Comments Pt able to states want and needs, follow commands and appears at baseline at time of OT eval. Pt just needing cues for new learning of keeping the FWW out in front on her as having too close to her initially. OT- Vision and Hearing OT- Hearing Assessment OT- Hearing Assessment WFL OT- Vision Assessment Visual Acuity Glasses All The Time M7 OT- IP Mobility and Balance Start: 09/23/20 10:59 Freq: Status: Active Protocol: Document 09/23/20 11:00 [facility] (Rec: 09/23/20 11:22 [facility] [id number]) OT- Bed Mobility Assessment Rolling Type of Rolling Roll to Right Level of Assistance Moderate Assistance Supine to Sit Supine to Sit Assist Moderate Assistance,1 Person Assistance Sit to Supine Sit to Supine Assist Moderate Assistance,1 Person Assistance OT-Transfer Assessment Sit to and From Stand Sit to and from Stand Minimal Assistance Transfers Transfer Ability Minimal Assistance Technique Transfer Destination Bed,Bedside Commode Transfer Technique Stand Step Pivot Devices Transfer Assistive Devices Gait Belt,Front Wheeled Walker Comments Mobility Comments Pt in too much pain to be able to get up on the left side of the bed and needing MODA to help get her trunk upright. NONI to stand with FWW and ambulate in the room. Pt heavily relies on her BUE on the handles of the FWW to unweight her legs. OT- Balance Assessment Sitting Balance and Reactions Static Sitting Balance Ability Good Dynamic Sitting Balance Ability Fair Standing Balance and Reactions Static Standing Balance Ability Poor M8 OT- IP Objective Assessments Start: 09/23/20 10:59 Freq: Status: Active Protocol: Document 09/23/20 11:00 [facility] (Rec: 09/23/20 11:22 [facility] [id number]) OT Gross Range of Motion Upper Extremity Range of Motion Assessment Within Functional Limits OT Strength Comments Strength Comments BUE 4/5 to 4+/5 from primal to distal. M9 OT- IP Assessment and Plan Start: 09/23/20 10:59 Freq: Status: Active Protocol: Document 09/23/20 11:00 [facility] (Rec: 09/23/20 11:22 [facility] [id number]) OT Summary Assessment and Plan Potential Rehabilitation Potential Good Analytic Complexity at Evaluation Low Summary OT Impairments Pain,Balance,Functional Mobility,Grooming,Dressing, Toileting,Bathing,Toilet Transfers,Shower Transfers, Activity Tolerance Progress Towards Goals Slow Progress due to Pain,Slow Progress due to Medical Issues,Slow Progress due to Activity Tolerance Assessment Summary Pt low complexity and main barriers are pain, house in renovation, and now needing extensive assist for ADL's needs, and decreased balance static standing and dynamic balance. Pt would benefit from skilled rehab to work on her balance, endurance, and activity tolerance as currently is at high fall risk . Pt's son works, grandson goes to school, and her elderly ex- questionable able to assist pt , therefore pt needs to be mostly independent prior to going home. Pt is very motivated and a good candidate for rehab at this time. Goals Self-Feeding Goal Independent Grooming Goal Independent Dressing Goal Independent Toileting Goal Independent Toilet Transfer Goal Independent Shower Transfer Goal Independent Patient/Caregiver Education Goal Caregiver Independent Assisting Patient Days to Meet Goals 10 Treatment Plan OT Treatment Plan ADL Training,Functional Mobility,Patient/Family Education,Discharge Planning Discharge Recommendations OT Discharge Recommendations SNF Rehab Other Discharge Recommendations Pending insurance approval , pt would benefit form skilled rehab versus if pt able to progress -home with assist and home health. Home Equipment Needs BSC, tub transfer bench Transportation Needs at Discharge Private Vehicle
--- NOTE | 2020-09-23 11:20 | CM.DANOTE ---
Addendum entered by Elizabeth Lopez 09/23/20 13:27: Patient's son Jamir visiting patient. He confirms that patient resides with him and his 85yr old Dad (x-). Son updated on d/c plan and provided with [facility] brochure. Son requesting to be notified when patient discharges. Spoke with Cece at [facility] and she is initiating authorization with [facility]. P: Anticipate d/c tomorrow if authorization obtained and patient medically stable. VANGIE Cruz Original Note: DCP/Assessment: Reviewed chart. Patient is a 70yr old female admitted to [facility] with back pain (sacral fracture). PCP listed is Dr. Carr. Primary payor is 1)[facility] Medicare. Met with patient this AM explained CM/SW role. Patient alert at time of visit but complaining of pain. Orthopedics have evaluated and report patient does not need surgery. Current recommendation is conservative treatment. PT/OT evaluation done today. Current recommendation from therapy is SNF for rehabilitation and pain control. Patient does report she is agreeable to short SNF stay. Patient's first choice is [facility]. ANALYTICS MANAGER placed call to Cece at [facility] requesting she evaluate and initiate authorization. Anticipate d/c within the next 24-48hrs. At baseline, patient reports that she is I in ADL's patient resides with her son/Jamir in [place]. P: Anticipate SNF when medically stable. Patient agreeable to short stay if authorization can be obtained. [facility] reviewing and initiating authorization. VANGIE Cruz Discharge Planning/Care Management CM Discharge Assessment Start: 09/23/20 11:15 Freq: Status: Active Protocol: Document 09/23/20 11:15 KJS (Rec: 09/23/20 11:19 KJS [id number]) Discharge Planning Assessment Assigned Echocardiographer VANGIE Cruz Contact Information Jamir Berkowitz (son) ph# Advance Directives? No History Provided By Patient,Medical Record Prior Living Arrangements House Household Members children Type of transporation used prior to Drives own vehicle admit Independent with ADL's Yes Is patient alert and oriented? Yes Caregiver for Another No Patient/Family Preference Assisted Facility Barriers to Discharge No Discharge Plan Assisted Facility Transportation Arrangement Facility Referrals Initiated Assisted Medicare Choice List Provided Yes SNF/HH Preference [facility] Contact Name/Phone October ph# [phone] Whiteboard Updated in Patient Room with Yes name and ext. # of Echocardiographer Review Status In Process Next Review Type Continued Stay Review Document 09/23/20 11:20 KJS (Rec: 09/23/20 11:20 KJS [id number]) Discharge Planning Assessment Assigned Echocardiographer VANGIE Cruz Contact Information Jamir Berkowitz (son) # [phone] Advance Directives? No History Provided By Patient,Medical Record Prior Living Arrangements House Household Members children Type of transporation used prior to Drives own vehicle admit Independent with ADL's Yes Is patient alert and oriented? Yes Caregiver for Another No Patient/Family Preference Assisted Facility Barriers to Discharge No Discharge Plan Assisted Facility Transportation Arrangement Facility Referrals Initiated Assisted Medicare Choice List Provided Yes SNF/HH Preference [facility] Contact Name/Phone Cece # [phone] Whiteboard Updated in Patient Room with Yes name and ext. # of Echocardiographer Review Status In Process Next Review Type Continued Stay Review
[2020-09-23] MEDS: methocarbamoL 500 MG TABLET PO ×2 (12:28→20:09)
[2020-09-23] MEDS: OXYCODONE IR 5 MG TABLET PO ×2 (12:29→20:09)
--- NOTE | 2020-09-23 15:43 | PT.IPTN ---
Current Diagnoses Hypo-osmolality and hyponatremia (09/23/20) Physical Therapy Treatment Note M2 PT-IP Current Condition Start: 09/23/20 08:21 Freq: NEEDED Status: Active Protocol: Document 09/23/20 10:32 AW (Rec: 09/23/20 11:38 AW [id number]) Physical Therapy Current Condition Current Condition Evaluation Date 09/23/20 Treatment Diagnosis B sacral fractures; LBP; PD; UTI; difficulty in walking Onset Date 09/19/20 Weight Bearing Status Weight Bearing Status Weight Bear as Tolerated M3 PT-IP Subjective Start: 09/23/20 08:21 Freq: NEEDED Status: Active Protocol: Document 09/23/20 15:43 AW (Rec: 09/23/20 16:01 AW [id number]) Subjective Physical Therapy Visit Type Type Treatment Note Visit Start Time 15:16 Visit Stop Time 15:43 Total Visit Minutes 27 Number of PIECE MEAT TRIMMER Visits 0 Physical Therapy Visit Comments Patient Comments Pt wants to try to use the [facility] Therapy Pain Assessment Pain When Pain Assessed During Mobility Pain Present Pain Present Allowed to Sleep Location Lower Back Intensity 10 Scale Used Numeric (0 - 10) Pain Behaviors Calling Out,Facial Grimacing, Restlessness,Wincing Pain Management Techniques Apply Cold,Re-positioning, Timing of Activity with Medications M4 PT-IP Mobility and Gait Start: 09/23/20 08:21 Freq: NEEDED Status: Active Protocol: Document 09/23/20 15:43 AW (Rec: 09/23/20 16:01 AW [id number]) PT-Bed Mobility Assessment Supine to Sit Supine to Sit Moderate Assistance,1 Person Assistance Sit to Supine Sit to Supine Moderate Assistance,1 Person Assistance Scooting Scooting to Edge of Bed Contact Guard Assistance PT-Transfer Assessment Sit to and From Stand Sit to and from Stand Minimal Assistance,1 Person Assistance,Use of Upper Extremities Equipment Transfer Assistive Device Gait Belt,Front Wheeled Walker Orthotic/Prosthetic Devices or Brace: No Transfers Transfer Destination Bed,Bedside Commode Transfer Technique Stand Step Pivot Transfer Ability Level of Assist Minimal Assistance Comments Mobility Comments Pt was lying on her left side as PT arrived. She attempted to sit up but reported 10/10 pain going to her left. She rolled to her right side and positioned herself diagonally on the bed with knees flexed. Mod assist was required for her to sit up EOB. She stood min A x 1 and pivot transferred to the [facility] using FWW. Sitting tolerance was poor and pt was unable to void . PT provided total assist to don fresh briefs. Pt stood min A x 1 and was able to reach to above her knees to pull up her briefs with fair standing balance. She then donned a face mask and ambulated in the halls with FWW CGA 75 feet. On return to the room, she attempted to sit on the right EOB but found it too painful. She stood and walked to the left side of bed with FWW CGA and needed mod assist to return to supine. Pt stated she wished to remain in supine . She was left with call light and all needs in reach as ASSISTANT FRONT DESK MANAGER arrived. Gait Assessment Gait Gait Assistance Required: Contact Guard Assist Distance (Feet) 75 Able to Maintain Weight Bearing Status Yes During Gait Assistive Devices Assistive Device Gait Belt,Front Wheeled Walker Orthotic/Prosthetic Devices or Brace: No Gait Deviations General Gait Pattern Antalgic,Decreased Stride Length,Decreased Feet Clearance,Step-to Gait Factors Limiting Gait Function Factors Limiting Gait Function Decreased Activity Tolerance, Decreased Sensation,Pain,Poor Balance Comments Gait Comments Pt improved her gait with FWW and was able to bear more weight BLE than at AM session. PT-Balance Assessment Sitting Balance and Reactions Static Sitting Balance Ability Poor Dynamic Sitting Balance Ability Poor Standing Balance and Reactions Static Standing Balance Ability Fair Dynamic Standing Balance Ability Fair Device Used FWW Comments Other Balance Tests/Deviations/Treatment Sitting more painful than : standing. M5 PT-IP Objective Assessments Start: 09/23/20 08:21 Freq: NEEDED Status: Active Protocol: Document 09/23/20 10:32 AW (Rec: 09/23/20 11:38 AW [id number]) Orientation Orientation/Cognition Level of Alertness Alert Orientation Name,Day of Week,Place, Situation Language Function Ability No Deficits Noted Safety Awareness Understands Safety Issues Memory Description No Deficits Noted Gross Range of Motion Upper Extremity ROM Assessment Right Impaired Impairments Recent R rotator cuff surgery with limitations in RUE ROM ~ 110 degrees elevation all planes Lower Extremity ROM Assessment Within Functional Limits Strength Lower Extremity Strength Assessment Within Functional Limits Comments Strength Comments Grossly 4+/5 BLE without unilateral deficit. Sensation Assessment Sensation Gross Sensation Right LE Impaired,Left LE Impaired Light Touch Impaired Sensation Description Numbness Comments Sensation Comments Pt complains of dull light touch sensation in bilateral feel for the past couple of years. Muscle Tone Muscle Tone WNL Yes M6 PT-IP Treatment Start: 09/23/20 08:21 Freq: NEEDED Status: Active Protocol: Document 09/23/20 15:43 AW (Rec: 09/23/20 16:01 AW [id number]) Physical Therapy Treatment Education Education Provided Weight Bearing Status,Safety Other Treatments Other Treatment Performed Postural cues for ambulation with FWW. M7 PT-IP Assessment and Plan Start: 09/23/20 08:21 Freq: NEEDED Status: Active Protocol: Document 09/23/20 15:43 AW (Rec: 09/23/20 16:01 AW [id number]) PT Summary Assessment and Plan Potential Rehabilitation Potential Good Status of Condition at Evaluation Evolving Summary Impairments Pain,Strength,Balance, Sensation,Bed Mobility, Transfers,Gait Progress Towards Goals Slow Progress due to Pain Assessment Summary Jadyn was able to ambulate further with FWW this PM but remains limited in sitting tolerance. Pain is limiting factor in transfers. Pt would benefit from SNF rehab to improve strength and mobility independence before safe return home. If she goes home, HH services should be considered. Goals Bed Mobility Goal Standby Assistance Transfer Goal Standby Assistance,Front Wheeled Walker Gait Goal Standby Assistance,Front Wheel Walker Gait Distance 100 Other Goals LTG: improve gait to 200 feet with LRAD SBA Frequency of Treatment Frequency Of Treatment Twice a Day Treatment Plan Physical Therapy Treatment Plan Bed Mobility Training,Transfer Training,Gait Training, Therapeutic Exercise,Balance Retraining,Discharge Planning, Hot or Cold Pack,Neuromuscular Re-ed Other Recommendations and Next Treatment bed mobility; transfers; gait Focus training with FWW Precautions Other Precautions Falls; WBAT with AD per ortho Recommendations To Nursing Amount of Assist Needed 1 Person Assist Discharge Recommendations PT Discharge Recommendations SNF Rehab Other Discharge Recommendations HH if pt does not go to SNF Equipment Needed for Home Before BSC, tub transfer bench if Discharge going home27 Transportation Needs at Discharge Private Vehicle,Wheelchair/ Cabulance
--- NOTE | 2020-09-23 19:33 | RT ---
Patient does not wear CPAP at home, she has had a sleep study in the past but it was determined that her sleep interruptions were restless leg. Patient observed as a mouth breather but has not required any oxygen to maintain saturations of greater than 92%
[2020-09-23] MEDS: SODIUM CHLORIDE 0.9% FLUSH 10 ML IV (20:25)
[2020-09-24] MEDS: ACETAMINOPHEN 325 MG TABLET 975 MG PO (02:18)
[2020-09-24 03:11] VITALS: BP 138/80; PULSE 112; RESP 18; TEMP 36.6; O2SAT 94
[2020-09-24] MEDS: OXYCODONE IR 10 MG TABLET PO ×2 (03:38→07:53)
[2020-09-24] MEDS: CYCLOBENZAPRINE 10 MG TABLET PO ×2 (03:39→07:52)
[2020-09-24] MEDS: OXYCODONE IR 5 MG TABLET PO (03:39)
[2020-09-24] MEDS: methocarbamoL 500 MG TABLET PO ×2 (04:47→09:21)
[2020-09-24] MEDS: GABAPENTIN 300 MG CAPSULE PO (07:52)
[2020-09-24] MEDS: CARBIDOPA-LEVODOPA 25/100 TABLET 1 EACH PO (07:52)
[2020-09-24] MEDS: SERTRALINE 50 MG TABLET 150 MG PO (07:53)
[2020-09-24] MEDS: levoFLOXacin 250 MG TABLET PO (07:59)
[2020-09-24 08:00] VITALS: BP 146/70; PULSE 100; TEMP 37
[2020-09-24] MEDS: lisinopriL 10 MG TABLET PO (08:00)
[2020-09-24] MEDS: SODIUM CHLORIDE 0.9% FLUSH 10 ML IV (08:04)
[2020-09-24 08:10] VITALS: RESP 20; O2SAT 99
[2020-09-24 10:00] VITALS: O2SAT 99
--- NOTE | 2020-09-24 10:17 | PT.IPTN ---
Current Diagnoses Hypo-osmolality and hyponatremia (09/23/20) Physical Therapy Treatment Note M2 PT-IP Current Condition Start: 09/23/20 08:21 Freq: NEEDED Status: Active Protocol: Document 09/23/20 10:32 AW (Rec: 09/23/20 11:38 AW [id number]) Physical Therapy Current Condition Current Condition Evaluation Date 09/23/20 Treatment Diagnosis B sacral fractures; LBP; PD; UTI; difficulty in walking Onset Date 09/19/20 Weight Bearing Status Weight Bearing Status Weight Bear as Tolerated M3 PT-IP Subjective Start: 09/23/20 08:21 Freq: NEEDED Status: Active Protocol: Document 09/24/20 10:17 AB (Rec: 09/24/20 12:45 AB [id number]) Subjective Physical Therapy Visit Type Type Treatment Note Visit Start Time 10:17 Visit Stop Time 11:01 Total Visit Minutes 44 Number of RESOURCE ECONOMIST Visits 0 Physical Therapy Visit Comments Patient Comments agreed to get up Therapy Pain Assessment Pain When Pain Assessed At Rest Pain Present Pain Present Pain Reported Location Lower Back Scale Used pain scale not stated Description Spasm Pain Behaviors Guarding,Holding Area, Restlessness,Wincing Pain Management Techniques Distraction,Modification of Treatment,Re-positioning, Timing of Activity with Medications M4 PT-IP Mobility and Gait Start: 09/23/20 08:21 Freq: NEEDED Status: Active Protocol: Document 09/24/20 10:17 AB (Rec: 09/24/20 12:45 AB [id number]) PT-Bed Mobility Assessment Rolling Type of Rolling Log Rolling Level of Assist Maximal Assistance,2 Person Assistance Supine to Sit Supine to Sit Maximum Assistance,2 Person Assistance,Bedrails Sit to Supine Sit to Supine Total Assistance,2 Person Assistance PT-Transfer Assessment Sit to and From Stand Sit to and from Stand Maximum Assistance,2 Person Assistance,Use of Upper Extremities Equipment Transfer Assistive Device Gait Belt,Front Wheeled Walker Orthotic/Prosthetic Devices or Brace: No Transfers Transfer Destination Chair,Bedside Commode Transfer Technique ambulated using FWW Transfer Ability Level of Assist Maximum Assistance,Total Assistance,2 Person Assistance ,Use of Upper Extremities Comments Mobility Comments completed supine to sit max A x 2 and max cues. required several attempts before pt was able to complete. pt with c/ o increase spasm on low back and is very restless and constant movement on BLE. pt tends to posterior lean during sitting and c/o increase pain . completed sit to stand max Ax 2 and max cues. ambulated in room using FWW mod to max A and ambulated in the hallway . Attempted to use bedside commode but was not able to tolerate sitting and has to get back up max A x2 and wants to sit on chair. transferred to chair max A x 2 using FWW and pt with increase posterior lean and is very restless and instructed to stand up again to transfer to the bed and completed max A x 2. pt with difficulty following directions due to c/o pain and required total A towards end of transfer from chair to bed and max cues with all tasks. pt leaned back during transfer with LE down on floor despite cues and assist for log roll. total Ax 2 for sit to supine . positioned pt in bed. call light and table placed within reach. Gait Assessment Gait Gait Assistance Required: Moderate Assistance,Maximum Assistance,1 Person Assist Distance (Feet) 125 Able to Maintain Weight Bearing Status Yes During Gait Assistive Devices Assistive Device Gait Belt,Front Wheeled Walker Orthotic/Prosthetic Devices or Brace: No Factors Limiting Gait Function Factors Limiting Gait Function Decreased Activity Tolerance, Decreased Strength,Difficulty Following Directions,Limited Range of Motion,Pain,Poor Balance,Poor Safety Awareness M5 PT-IP Objective Assessments Start: 09/23/20 08:21 Freq: NEEDED Status: Active Protocol: Document 09/23/20 10:32 AW (Rec: 09/23/20 11:38 AW [id number]) Orientation Orientation/Cognition Level of Alertness Alert Orientation Name,Day of Week,Place, Situation Language Function Ability No Deficits Noted Safety Awareness Understands Safety Issues Memory Description No Deficits Noted Gross Range of Motion Upper Extremity ROM Assessment Right Impaired Impairments Recent R rotator cuff surgery with limitations in RUE ROM ~ 110 degrees elevation all planes Lower Extremity ROM Assessment Within Functional Limits Strength Lower Extremity Strength Assessment Within Functional Limits Comments Strength Comments Grossly 4+/5 BLE without unilateral deficit. Sensation Assessment Sensation Gross Sensation Right LE Impaired,Left LE Impaired Light Touch Impaired Sensation Description Numbness Comments Sensation Comments Pt complains of dull light touch sensation in bilateral feel for the past couple of years. Muscle Tone Muscle Tone WNL Yes M6 PT-IP Treatment Start: 09/23/20 08:21 Freq: NEEDED Status: Active Protocol: Document 09/24/20 10:17 AB (Rec: 09/24/20 12:45 AB [id number]) Physical Therapy Treatment Education Education Provided Precautions,Safety M7 PT-IP Assessment and Plan Start: 09/23/20 08:21 Freq: NEEDED Status: Active Protocol: Document 09/24/20 10:17 AB (Rec: 09/24/20 12:45 AB [id number]) PT Summary Assessment and Plan Potential Rehabilitation Potential Fair Summary Impairments Pain,ROM,Strength,Balance, Coordination,Sensation,Tone, Cognition,Bed Mobility, Transfers,Gait,Activity Tolerance Progress Towards Goals Slow Progress due to Pain Assessment Summary pt requiring max A x 2 to total A x 2 with transfers and mod to max A for ambulation using FWW. pt is unable to tolerate sitting position and tends to posterior lean due to c/o pain and has difficulty following directions due to c/ o pain. pt will require SNF rehab to improve mobility independence. Goals Bed Mobility Goal Standby Assistance Transfer Goal Standby Assistance,Front Wheeled Walker Gait Goal Standby Assistance,Front Wheel Walker Gait Distance 100 Other Goals LTG: improve gait to 200 feet with LRAD SBA Days to Meet Goals 10 Frequency of Treatment Frequency Of Treatment Once a Day Treatment Plan Physical Therapy Treatment Plan Bed Mobility Training,Transfer Training,Gait Training, Therapeutic Exercise,Balance Retraining,Discharge Planning, Hot or Cold Pack,Neuromuscular Re-ed Precautions Other Precautions Falls; WBAT with AD per ortho Recommendations To Nursing Amount of Assist Needed 2 Person Assist Discharge Recommendations PT Discharge Recommendations SNF Rehab Transportation Needs at Discharge Wheelchair/Cabulance
--- NOTE | 2020-09-24 11:01 | PM.DS.1 ---
History of Present Illness History of Present Illness Date Patient Seen: 09/24/20 Chief complaint: Back Pain Narrative: Ms. Jadyn Berkowitz is a 70-year-old female with past medical history significant for parkinsonism, hypertension, hyperlipidemia, chronic cervical pain, knee pain, Lord cyst, osteoporosis, RLS and anxiety/depression who presents to the ER with worsening low back pain. The patient was seen in the emergency department on 09/19/2020 at which time she was diagnosed with a muscular strain and discharged following treatment with cyclobenzaprine and Toradol. Patient returns tonight with progressively worsening pain. She denies neurological deficits including radiating pain, saddle anesthesia, loss of bowel control. She does acknowledge urinary urgency stating she may lose control of urine while attempting to get to the bathroom and was diagnosed with UTI on her ER visit 3 days ago. The patient does have history of parkinsonism and has an unsteady gait at baseline but denies trauma or falls. She reports no fevers or chills, nasal congestion or sore throat. She does have chronic anterior neck pain she describes as wrapping across the front her neck submandibular which is followed by her primary care provider. She has had no complaints chest pain or palpitations, shortness of breath cough or wheezing. She denies epigastric or abdominal pain, nausea vomiting, diarrhea or constipation. The patient reports weakness since her last rotator cuff surgery with loss of muscle mass. She does endorse altered sensation of the left foot which has been chronic and described as blunted sensation with pins and needles. Upon arrival to the ER the patient's temperature 98.6?, heart rate of 84, blood pressure 146/72, respirations 16 saturating 99% on room air. Imaging obtained on 09/19/2020 identifies a subtle asymmetric widening of the distal coccyx with possible subtle step-off deformity which may represent subtle fracture versus artifact from positioning. Patient underwent CT scan finding and oblique oriented fracture through the S1 vertebral body extending into the right S1-S2 neuroforamen and the bilateral S2 vertebral body which is mildly angulated, bilateral ala fractures. Diffuse disc bulges with moderate bilateral neuroforaminal stenosis at L3-L4 through L5-S1, possible anterior epidural hematoma measuring up to 4 mm in thickness at the L4 and lower levels. On laboratory analysis the patient has white count of 6.7, hemoglobin 9.2 and hematocrit of 27.1 and platelets 289. Her PT is 11.9 with an INR of 1.0 and a PTT of 30. Chemistry finds a low sodium at 1:21 a.m. and low potassium at 3.2. Her BUN is 13 and creatinine 0.4 for a BUN creatinine ratio 32.5. She has a CRP of 3.0 and a sed rate of 57. COVID screening is negative. Dr. Boss, orthopedics, is contacted through the emergency department with the above CT findings reviewed and agrees to consult. In the ER the patient received Dilaudid for pain, 40 mEq KCL, normal saline 125 and 1 g Rocephin for previously identified urinary tract infection. The patient is admitted to the hospitalist service for intractable pain secondary to sacral fracture with ortho consult. Discharge Providers Provider Date of admission: 09/23/20 02:08 Discharge Date: 09/24/20 Primary care physician: Gigi Carr DO Consults: 09/23/20 01:48 Consult to Orthopedic Surgery Stat Comment: sacral Consulting Provider: Sal Boss Reason for consultation: sacral fracture Has provider been notified: Yes 09/23/20 03:06 Consult to Discharge Planning Routine Comment: Consult to Occupational Therapy Evaluate & Treat Comment: Physician Instructions: Evaluate and treat Consult to Orthopedic Surgery Routine Comment: Consulting Provider: Sal Boss Reason for consultation: Nontraumatic S1 fracture Has provider been notified: Yes Consult to Physical Therapy Evaluate & Treat Comment: Physician Instructions: Evaluate and Treat Discharge provider: Erna Stoll MD Summary Hospital Course Discharge Diagnosis: 1. Mildly displaced Zone 1 and Zone 2 sacral fracture 2. Moderate L4-L5 djd 3. Mild l1-L2, L2-L3, L3-L4, and L5-S1 4. Parkinson's Disease 5. Hypertension 6. Depression 7. Chronic Anemia 8. Hyponatremia Hospital Course: Patient was admitted to the hospital for severe low back pain. She was evaluated and CT scan confirmed 2 mildly displaced sacral fractures and DJD of the lumbar spine. She was in significant pain and required oral pain medications to control her pain. She was evaluated by PT/OT. She continued to have spasms of pain that was responsive to treatment. As the patient was unable to be fully independent at home arrangements were made for her to go to [facility] for further rehabilitation and pain management. Patient was deemed appropriate for discharge and transferred to [facility]. Exam Vital Signs (past 8 hours): - 09/24/20 03:11 09/24/20 08:00 09/24/20 08:10 Temperature 97.8 F 98.6 F Pulse Rate 112 H 100 H Respiratory Rate 18 20 Blood Pressure 138/80 146/70 H Pulse Oximetry 94 99 09/24/20 10:00 Temperature Pulse Rate Respiratory Rate Blood Pressure Pulse Oximetry 99 Oxygen Delivery Method Room Air Oxygen Flow Rate 0 Narrative Exam Narrative: Ill appearing female with significant discomfort from pain. After medications,she was calm and without complaint Lungs: clear to auscultation CV: RRR nl Sl S2 Abd; soft/ non tender Ext: no edema Objective Labs Result Diagrams: 09/23/20 04:50 09/23/20 04:50 Labs: Laboratory Results - last 24 hr 09/23/20 14:00 Nasal Screen MRSA (PCR) Negative for mrsa [facility] Medical History ADD (attention deficit disorder) Anxiety Asthma Lord's cyst of knee Chicken pox (~1958) Depression Hives (~1999) HSV (herpes simplex virus) infection (~1977) Hypertension Melanoma (~2008) Neck pain of over 3 months duration Nocturia more than twice per night Osteoporosis (~2014) Parkinsonism (~2017) Plantar warts Pure hypercholesterolemia Restless leg Rheumatoid arthritis Seasonal allergies (~1975) Skin cancer (~2010) Surgical History Anesthesia Fractures (~05/2012) H/O melanoma excision (~2008) H/O vein stripping (~2003) History of repair of rotator cuff Family History Brother Age: 72 High cholesterol Brother Age: 64 High cholesterol Child Age: 43 History of skin cancer Child Age: 39 Arthritis Father Skin cancer Parkinson's disease dementia Arthritis Dementia Mother Dementia Hypertension Osteoporosis History of shingles Arthritis Sister Age: 58 Thyroid condition Grandfather No problems noted. Grandmother No problems noted. Social History household members: children Smoking Status: Never smoker alcohol intake: never substance use type: does not use Discharge Assessment & Plan Assessment and Plan Assessment: Sacral Fracture. likely secondary to osteoporosis Lumbar Spine DJD Parkinson's Disease Hypertension Depression Plan of Treatment: Pain control transfer to SNF Continue PT/OT Treatment for osteoporosis Discharge Plan Discharge Plan Patient Disposition: SNF Transfer to: [facility] Transportation: [facility] I certify the postop hospital intermediate care is medically necessary on a continuing basis for any conditions for which he/ she received care during this hospitalization.: Yes The receiving facility has agreed to accept transfer and provide medical treatment.: Yes Discharge orders & Medications Prescriptions: New oxycodone 10 mg Tablet 10 mg PO Q4HR PRN (Reason: Pain, Severe (7-10)) Qty: 20 RF: 0 levofloxacin 250 mg Tablet 250 mg PO 0700 Qty: 3 RF: 0 calcium carbonate [Calcium 500] 500 mg calcium (1,250 mg) tablet,chewable 500 mg PO BID Qty: 60 RF: 0 cholecalciferol (vitamin D3) [Vitamin D3] 50 mcg (2,000 unit) capsule 50 mcg PO DAILY Qty: 30 RF: 0 acetaminophen 325 mg Tablet 975 mg PO Q8H Qty: 15 RF: 0 bisacodyl 10 mg Suppository 10 mg NV DAILY PRN (Reason: Constipation) Qty: 10 RF: 0 docusate sodium [DOK] 100 mg Capsule 100 mg PO BID PRN (Reason: Constipation) Qty: 15 RF: 0 methocarbamol 500 mg Tablet 500 mg PO QID PRN (Reason: Muscle Spasm) Qty: 15 RF: 0 Continued sertraline 100 mg tablet 150 mg PO DAILY Qty: 135 RF: 3 carbidopa-levodopa 25-100 mg tablet 1 tab PO TID Qty: 90 RF: 5 hydroxyzine HCl 10 mg tablet See Rx Instructions .ROUTE .COMPLEX Qty: 30 RF: 2 gabapentin 300 mg capsule 900 mg PO BEDTIME PRN (Reason: sleep) Qty: 90 RF: 5 lisinopril 10 mg tablet 10 mg PO DAILY Qty: 90 RF: 3 clonazepam 0.5 mg tablet See Rx Instructions .ROUTE .COMPLEX PRN (Reason: sleep) Qty: 90 RF: 0 cyclobenzaprine 10 mg tablet 10 mg PO TID PRN (Reason: muscle spasm) Qty: 14 RF: 0 ketorolac 10 mg tablet 10 mg PO Q6H PRN (Reason: pain) Qty: 14 RF: 0 Follow up/Referrals: Gigi Carr DO [Primary Care Provider] - Discharge Health Status Multidrug resistant organism: No MDRO Diet/Activity/Treatments Diet: Diet as Tolerated Liquid consistency: Normal/Thin Food texture: Regular Skin/Wound/Dressing Care Report to your healthcare provider any signs of infection, such as:: increased pain Special Rehabilitation Services Reason for rehabilitation: Recovery r/t decondition Rehab type: Physical therapy and Occupational therapy Discharge Data Primary Care Provider: Gigi Carr Attending Provider: Shmuel Carr VTE Deep Vein Thrombosis/Pulmonary Embolism Present on Admission: No
--- NOTE | 2020-09-24 11:21 | PC.NURSE ---
Addendum entered by Rachel Whipple R.N. 09/24/20 13:01: Discharge instructions and discharge packet given to patient and transport staff. Updated Teresa regarding patients disposition at 1300. Discharge to [facility] via . All belongings with patient, including home medications, phone and changer. Original Note: Day shift note: Report given to Teresa CRUZ at [facility], all questions answered.
[2020-09-24 11:36] LABS: Calcium 8.2 mg/dL (8.7-10.3); Parathyroid Hormone, Intact 49 pg/mL (15-65)
--- NOTE | 2020-09-24 12:29 | CM.DPNOTE ---
Faxed signed med list, RX's, order, DC summary and Pasrr per Elizabeth on 09/24/20 to [facility]. Received fax confirmation. Vivienne Dolan CM Asst.
--- NOTE | 2020-09-24 13:29 | CM.DANOTE ---
DCP/Assessment: Reviewed chart. Spoke with provider this AM. Dr. Stoll she reports patient is medically stable to d/c to SNF today. Received call from October at [facility] around 11:00AM she reports that authorization has been obtained and they can accept. JASS/Vivienne faxed orders, PASRR, and d/c summary to [facility]. Met with patient this AM she is aware and agreeable to plan. Per patient's request placed call to son/Luke he is updated on plan. No additional needs identified at this time. P: [facility] today. VANGIE Cruz
== END 2020-09-24 12:55 ==
LOC: ED 02:08 → AC 02:21 → ICU 09:37 → AC 10:27 → ICU 10:27
PROVIDERS: Admitting Provider Nurse Practitioner Adult Health; Emergency Provider Emergency Medicine; PCP Family Medicine; Referring Provider Internal Medicine; Visit Provider Nurse Practitioner Adult Health
DX: M80.88XA Other osteoporosis with current pathological fracture, vertebra(e), initial encounter for fracture (principal); N39.0 Urinary tract infection, site not specified; E87.6 Hypokalemia; E87.1 Hypo-osmolality and hyponatremia; G20 Parkinson's disease; I10 Essential (primary) hypertension; E78.5 Hyperlipidemia, unspecified; G25.81 Restless legs syndrome; F41.9 Anxiety disorder, unspecified; F32.9 Major depressive disorder, single episode, unspecified; R29.6 Repeated falls; M47.816 Spondylosis without myelopathy or radiculopathy, lumbar region; D64.9 Anemia, unspecified
CPT/HCPCS: 36415; 36592; 72132; 80048; 81003; 82306; 82310; 83735; 83970; 84300; 85025; 85610; 85651; 85730; 86140; 87635; 87797; 96365; 96366; 96367; 96375; 96376; 97116; 97161; 97165; 97530; 99284; C9803; G0378; J1170; J3480; Q9967

== ENCOUNTER → 2020-11-28 11:39 | Outpatient (CLI) | payer MEDICARE, SELFPAY ==
[2020-09-23 03:21] VITALS: BMI 20.8
== END ==
PROVIDERS: PCP Registered Nurse; Referring Provider Registered Nurse; Visit Provider Registered Nurse
DX: N39.0 Urinary tract infection, site not specified (principal)
CPT/HCPCS: 87077; 87086; 87186

== ENCOUNTER → 2021-07-22 15:09 | Outpatient (CLI) | payer MEDICARE, SELFPAY ==
[2020-09-23 03:21] VITALS: BMI 20.8
--- NOTE | 2021-07-22 15:10 | DI.RAD.S_ITS ---
PROCEDURE: XR DEXA AXIAL SKELETON INDICATIONS: osteoporosis COMPARISON: [facility], CR, XR DEXA AXIAL SKELETON, 06/08/2019, 14:59. FINDINGS: This blank DEXA report has been sent in error by the PACS system. The correct and complete report will be forthcoming in 1-2 days. Thank you for your patience and understanding. Dictated by: Margarita Barth MD, PhD on 07/22/2021 at 17:49 Approved by: Margarita Barth MD, PhD on 07/22/2021 at 17:49
== END ==
PROVIDERS: PCP Registered Nurse; Referring Provider Registered Nurse; Visit Provider Registered Nurse
DX: M81.0 Age-related osteoporosis without current pathological fracture (principal); Z78.0 Asymptomatic menopausal state; Z82.62 Family history of osteoporosis
CPT/HCPCS: 77080

== ENCOUNTER → 2021-08-08 13:48 | Outpatient (CLI) | payer MEDICARE, SELFPAY ==
[2020-09-23 03:21] VITALS: BMI 20.8
--- NOTE | 2021-08-08 13:50 | DI.MG.S_ITS ---
BILATERAL DIGITAL SCREENING MAMMOGRAM 3D/2D WITH CAD: 08/08/2021 CLINICAL: Routine screening. Comparison is made to exams dated: 03/08/2018 [facility], 01/10/2016 mammogram - [facility], 04/22/2009 [facility], and 02/21/2014 mammogram - [facility]. There are scattered fibroglandular elements in both breasts. Current study was also evaluated with a Computer Aided Detection (CAD) system. There are benign vascular calcifications in both breasts. No significant masses, calcifications, or other findings are seen in either breast. There has been no significant interval change. IMPRESSION: BENIGN There is no mammographic evidence of malignancy. A 1 year screening mammogram is recommended. This exam was interpreted at Station ID: [id number]. NOTE: For mammograms, a report in lay terms will be sent to the patient. Approximately 15% of breast malignancies will not be visualized mammographically. In the management of a palpable breast mass, a negative mammogram must not discourage biopsy of a clinically suspicious lesion. Electronically Signed By: Ramón Hewitt acr/penrad:08/08/2021 14:24:50 letter sent: Normal Exam ACR BI-RADS Category 2: Benign Finding(s) 3342F
== END ==
PROVIDERS: PCP Registered Nurse; Referring Provider Registered Nurse; Visit Provider Registered Nurse
DX: Z12.31 Encounter for screening mammogram for malignant neoplasm of breast (principal)
CPT/HCPCS: 77063; 77067

== ENCOUNTER → 2021-10-14 12:18 | Outpatient (CLI) | payer MEDICARE, SELFPAY ==
[2020-09-23 03:21] VITALS: BMI 20.8
[2021-10-14 14:25] LABS: Add Manual Diff / Slide Review NO; Basophils Absolute Auto 0 /uL (0-100); Eosinophils Absolute Auto 500 /uL (0-450); Eosinophils Percent Auto 10.3 % (2-4); Hematocrit 31.4 % (36-46); Hemoglobin 10.6 g/dL (12.0-16.0); Lymphocytes Absolute Auto 800 /uL (1100-4500); Mean Corpuscular HGB Conc 33.7 % (30-36); Mean Corpuscular Hemoglobin 28.5 PG (26-34); Mean Corpuscular Volume 84.6 fL (80-100); Monocytes Absolute Auto 400 /uL (0-900); Monocytes Percent Auto 8.8 % (3-14); Neutrophils Absolute Auto 3200 /uL (1500-7000); Neutrophils Percent Auto 63.9 % (50-75); Platelet Count 280 X10^3/uL (150-400); Red Blood Cell Count 3.72 X10^6/uL (4.0-5.2); Red Cell Distribution Width 15.6 % (11.6-14.8)
[2021-10-14 14:47] LABS: Albumin 4.2 g/dL (3.5-5.0); Albumin Globulin Ratio 1.2 (1.0-2.8); Alkaline Phosphatase 70 U/L (38-126); Aspartate Aminotransferase 34 IU/L (14-36); BUN Creatinine Ratio 22.8 (6-22); Bilirubin Total 0.5 mg/dL (0.2-1.3); Blood Urea Nitrogen 13 mg/dL (7-17); Calcium 8.8 mg/dL (8.4-10.2); Carbon Dioxide 30 mmol/L (22-32); Chloride 97 mmol/L (98-107); Cholesterol 228 mg/dL (140-199); Estimated Glomerular Filt Rate > 60 mL/min (>60); Globulin 3.5 g/dL (1.7-4.1); Glucose 89 mg/dL (80-110); HDL Cholesterol 54 mg/dL (40-60); HEMOLYSIS < 15 (0-50); LDL Cholesterol Calculated 153 mg/dL (<100); Sodium 135 mmol/L (137-145); Total Protein 7.7 g/dL (6.3-8.2); Triglycerides 105 mg/dL (35-150)
[2021-10-14 14:50] LABS: Alanine Aminotransferase < 4 IU/L (<35)
[2021-10-14 15:01] LABS: Vitamin D 25 Hydroxy (D3) 52.1 ng/mL (30.0-100.0)
[2021-10-14 15:15] LABS: Thyroid Stimulating Hormone 3.15 uIU/mL (0.47-4.68)
== END ==
PROVIDERS: Registered Nurse; Referring Provider Nurse Practitioner Family; Visit Provider Nurse Practitioner Family
DX: M81.0 Age-related osteoporosis without current pathological fracture (principal); D64.9 Anemia, unspecified; R79.89 Other specified abnormal findings of blood chemistry; E78.00 Pure hypercholesterolemia, unspecified
CPT/HCPCS: 36415; 80053; 80061; 82306; 84443; 85025

== ENCOUNTER → 2021-11-27 13:05 | Outpatient (CLI) | payer MEDICARE, SELFPAY ==
[2020-09-23 03:21] VITALS: BMI 20.8
[2021-11-27 14:21] LABS: Reticulocyte Count, Percent 1.4 % (1.1-2.6)
[2021-11-27 14:30] LABS: HEMOLYSIS < 15 (0-50); Iron 64 ug/dL (37-170)
[2021-11-27 14:31] LABS: Lactate Dehydrogenase 440 U/L (313-618)
[2021-11-27 14:42] LABS: Percent Iron Saturation 19 % (15-50); Total Iron Binding Capacity 331 ug/dL (265-497); Transferrin 260 mg/dL (206-381)
[2021-11-27 15:08] LABS: Ferritin 9 ng/mL (11-264)
[2021-11-27 15:23] LABS: Vitamin B12 981 pg/mL (239-931)
== END ==
PROVIDERS: PCP Internal Medicine; Referring Provider Internal Medicine; Visit Provider Internal Medicine
DX: D64.9 Anemia, unspecified (principal); E53.8 Deficiency of other specified B group vitamins
CPT/HCPCS: 36415; 82607; 82728; 83540; 83550; 83615; 85045

== ENCOUNTER → 2021-12-03 14:51 | Outpatient (CLI) | payer MEDICARE, SELFPAY ==
[2020-09-23 03:21] VITALS: BMI 20.8
[2021-12-03 15:06] LABS: Hematocrit 32.4 % (36-46); Hemoglobin 10.7 g/dL (12.0-16.0); Mean Corpuscular HGB Conc 32.9 % (30-36); Mean Corpuscular Hemoglobin 28.2 PG (26-34); Mean Corpuscular Volume 85.8 fL (80-100); Platelet Count 365 X10^3/uL (150-400); Red Blood Cell Count 3.77 X10^6/uL (4.0-5.2); Red Cell Distribution Width 15.4 % (11.6-14.8); White Blood Cell Count 5.8 X10^3/uL (4.5-11.0)
[2021-12-03 15:46] LABS: Alanine Aminotransferase 9 IU/L (<35); Albumin 4.3 g/dL (3.5-5.0); Albumin Globulin Ratio 1.3 (1.0-2.8); Alkaline Phosphatase 59 U/L (38-126); Aspartate Aminotransferase 23 IU/L (14-36); BUN Creatinine Ratio 54.7 (6-22); Bilirubin Total 0.4 mg/dL (0.2-1.3); Blood Urea Nitrogen 29 mg/dL (7-17); Calcium 9.1 mg/dL (8.4-10.2); Carbon Dioxide 29 mmol/L (22-32); Chloride 99 mmol/L (98-107); Cholesterol 194 mg/dL (140-199); Estimated Glomerular Filt Rate > 60 mL/min (>60); Globulin 3.4 g/dL (1.7-4.1); Glucose 85 mg/dL (80-110); HDL Cholesterol 70 mg/dL (40-60); HEMOLYSIS < 15 (0-50); LDL Cholesterol Calculated 87 mg/dL (<100); Potassium 4.6 mmol/L (3.4-5.1); Sodium 135 mmol/L (137-145); Total Protein 7.7 g/dL (6.3-8.2); Triglycerides 186 mg/dL (35-150)
[2021-12-03 16:03] LABS: Vitamin D 25 Hydroxy (D3) 40.4 ng/mL (30.0-100.0)
== END ==
PROVIDERS: PCP Internal Medicine; Referring Provider Internal Medicine; Visit Provider Internal Medicine
DX: D64.9 Anemia, unspecified (principal); E78.2 Mixed hyperlipidemia; M81.0 Age-related osteoporosis without current pathological fracture
CPT/HCPCS: 36415; 80053; 80061; 82306; 85027

== ENCOUNTER → 2023-08-17 15:33 | Outpatient (CLI) | payer MEDICARE, SELFPAY ==
[2020-09-23 03:21] VITALS: BMI 20.8
[2023-08-17 16:07] LABS: Hematocrit 32.9 % (36-46); Hemoglobin 10.9 g/dL (12.0-16.0); Mean Corpuscular HGB Conc 33.2 % (30-36); Mean Corpuscular Hemoglobin 29.7 PG (26-34); Mean Corpuscular Volume 89.4 fL (80-100); Platelet Count 243 X10^3/uL (150-400); Red Blood Cell Count 3.69 X10^6/uL (4.0-5.2); Red Cell Distribution Width 13.6 % (11.6-14.8); White Blood Cell Count 5.1 X10^3/uL (4.5-11.0)
[2023-08-17 16:35] LABS: HEMOLYSIS < 15 (0-50); Iron 124 ug/dL (37-170)
[2023-08-17 16:36] LABS: Aspartate Aminotransferase 25 IU/L (14-36); BUN Creatinine Ratio 42.6 (6-22); Blood Urea Nitrogen 23 mg/dL (7-17); Calcium 9.4 mg/dL (8.4-10.2); Carbon Dioxide 26 mmol/L (22-32); Chloride 102 mmol/L (98-107); Cholesterol 148 mg/dL (140-199); Estimated Glomerular Filt Rate > 60 mL/min (>60); Glucose 92 mg/dL (80-110); HDL Cholesterol 66 mg/dL (40-60); HEMOLYSIS < 15 (0-50); LDL Cholesterol Calculated 60 mg/dL (<100); Potassium 4.1 mmol/L (3.4-5.1); Sodium 134 mmol/L (137-145); Triglycerides 108 mg/dL (35-150)
[2023-08-17 16:45] LABS: Percent Iron Saturation 44 % (15-50); Total Iron Binding Capacity 283 ug/dL (265-497); Transferrin 236 mg/dL (206-381)
[2023-08-17 17:10] LABS: Ferritin 10 ng/mL (11-264)
== END ==
PROVIDERS: PCP Internal Medicine; Referring Provider Internal Medicine; Visit Provider Internal Medicine
DX: E78.2 Mixed hyperlipidemia (principal); D50.9 Iron deficiency anemia, unspecified; I10 Essential (primary) hypertension
CPT/HCPCS: 36415; 80048; 80061; 82728; 83540; 83550; 84450; 85027

== ENCOUNTER → 2024-03-08 16:31 | Outpatient (CLI) | payer MEDICARE, SELFPAY ==
[2020-09-23 03:21] VITALS: BMI 20.8
[2024-03-08 18:08] LABS: HEMOLYSIS < 15 (0-50); Iron 63 ug/dL (37-170)
[2024-03-08 18:20] LABS: Percent Iron Saturation 21 % (15-50); Total Iron Binding Capacity 296 ug/dL (265-497); Transferrin 239 mg/dL (206-381)
[2024-03-08 18:37] LABS: Hematocrit 32.8 % (36-46); Hemoglobin 11.1 g/dL (12.0-16.0); Mean Corpuscular HGB Conc 33.9 % (30-36); Mean Corpuscular Hemoglobin 29.9 PG (26-34); Mean Corpuscular Volume 88.2 fL (80-100); Platelet Count 267 X10^3/uL (150-400); Red Blood Cell Count 3.72 X10^6/uL (4.0-5.2); Red Cell Distribution Width 13.5 % (11.6-14.8); White Blood Cell Count 5.5 X10^3/uL (4.5-11.0)
[2024-03-08 19:22] LABS: Ferritin 8 ng/mL (11-264)
== END ==
PROVIDERS: PCP Internal Medicine; Referring Provider Internal Medicine; Visit Provider Internal Medicine
DX: D64.9 Anemia, unspecified (principal)
CPT/HCPCS: 82728; 83540; 83550; 85027

== ENCOUNTER → 2024-06-01 13:08 | Outpatient (CLI) | payer MEDICARE, SELFPAY ==
[2020-09-23 03:21] VITALS: BMI 20.8
--- NOTE | 2024-06-01 13:11 | DI.RAD.S_ITS ---
PROCEDURE: XR DEXA AXIAL SKELETON INDICATIONS: osteoporosis COMPARISON: [facility], CR, XR DEXA AXIAL SKELETON, 07/22/2021, 16:01. FINDINGS: Lumbar Spine: Bone mineral density 0.594 g/cm2, T score -4.1. There is interval 2.7 percent decrease in total lumbar spine bone mineral density. Left Hip: Bone mineral density 0.605 g/cm2, T score -2.8. There is interval 2.1 percent increase in total left hip bone mineral density. Left Femoral Neck: Bone mineral density 0.507 g/cm2, T score is 3.1. There is interval 1.1 percent decrease in left femoral neck bone mineral density. Right Hip: Bone mineral density 0.563 g/cm2, T score -3.1. There is interval 1.7 percent decrease in right total hip bone mineral density. Right Femoral Neck: Bone mineral density 0.477 g/cm2, T score -3.4. There is interval 5.2 percent decrease in right femoral neck bone mineral density. Fracture Risk Calculation (when applicable): 10-year fracture risk of a major osteoporotic fracture 21 percent and of a hip fracture 8.6 percent. (T score greater or equal to -1.0 to: NORMAL) (T score from -1.1 to -2.4: OSTEOPENIA) (T score less than or equal to -2.5: OSTEOPOROSIS) IMPRESSION: Osteoporosis. Follow-up guidelines as follows: Osteoporosis: Consider a repeat DEXA and Vertebral Fracture Assessment (VFA) exam in 2 years or sooner if medically necessary, to reassess this patient's status. Osteopenia: Consider a repeat DEXA in 2-3 years to reassess this patient's status, or if there is a new clinical indication. Normal: Consider a repeat DEXA in 5 years or sooner, or if there is a new clinical indication. All treatment decisions require clinical judgment and consideration of individual patient factors, including patient preferences, comorbidities, previous drug use, risk factors not captured in the FRAX model (e.g., frailty, falls, vitamin D deficiency, increased bone turnover, interval significant decline in bone density ) and possible under- or over-estimation of fracture risk by FRAX. In addition, the NOF Guide recommends that FDA-approved medical therapies be considered in postmenopausal women and men age >= 50 years with a: * Hip or vertebral (clinical or morphometric) fracture * T-score of <=-2.5 at the spine or hip * Ten-year fracture probability by FRAX of >= 3% for hip fracture or >=20% for major osteoporotic fracture. People with diagnosed cases of osteoporosis or at high risk for fracture should have regular bone mineral density tests. For patients eligible for Medicare, routine testing is allowed once every 2 years. The testing frequency can be increased to one year for patients who have rapidly progressing disease, those who are receiving or discontinuing medical therapy to restore bone mass, or have additional risk factors. Dictated by: Jacky Butler M.D. on 06/02/2024 at 10:00 Approved by: Jacky Butler M.D. on 06/02/2024 at 10:10
--- NOTE | 2024-06-01 13:12 | DI.MG.S_ITS ---
BILATERAL DIGITAL SCREENING MAMMOGRAM 3D/2D WITH CAD: 06/01/2024 CLINICAL: Routine screening. Family history of breast cancer. Comparison is made to exams dated: 08/08/2021 mammogram, 03/08/2018 mammogram - [facility], and 01/10/2016 mammogram - [facility]. There are scattered areas of fibroglandular density (category b / 25%-50% glandular tissue). Current study was also evaluated with a Computer Aided Detection (CAD) system. There is an oval focal asymmetry in the right breast at 7 o'clock anterior depth. This is more prominent and increased in size. No other significant masses, calcifications, or other findings are seen in either breast. IMPRESSION: INCOMPLETE: NEED ADDITIONAL IMAGING EVALUATION The oval focal asymmetry in the right breast is indeterminate. Additional views with possible ultrasound are recommended. Based on the Tyrer Cuzick model (a risk assessment model) the patient's lifetime risk is 3.3% and her 10 year risk is 2.5%. According to the ACR, ACS, and NCCN guidelines, an annual breast MRI exam along with mammogram is recommended if the patient's lifetime risk is 20% or greater. This exam was interpreted at Station ID: [id number]. NOTE: For mammograms, a report in lay terms will be sent to the patient. Approximately 15% of breast malignancies will not be visualized mammographically. In the management of a palpable breast mass, a negative mammogram must not discourage biopsy of a clinically suspicious lesion. Electronically Signed By: Kj Rainey M.D. at/:06/01/2024 14:15:55 letter sent: Additional Imaging Needed ACR BI-RADS Category 0: Incomplete: Need Additional Imaging Evaluation
== END ==
LOC: MAMMO 13:10
PROVIDERS: PCP Internal Medicine; Referring Provider Internal Medicine; Visit Provider Internal Medicine
DX: M81.0 Age-related osteoporosis without current pathological fracture (principal); Z12.31 Encounter for screening mammogram for malignant neoplasm of breast; Z80.3 Family history of malignant neoplasm of breast
CPT/HCPCS: 77063; 77067; 77080

== ENCOUNTER → 2024-06-15 | Outpatient (CLI) | payer MEDICARE, SELFPAY ==
[2020-09-23 03:21] VITALS: BMI 20.8
--- NOTE | 2024-06-15 12:10 | DI.MG.S_ITS ---
UNILATERAL RIGHT DIGITAL DIAGNOSTIC MAMMOGRAM 3D/2D WITH ADDITIONAL VIEWS: 06/15/2024 CLINICAL: Additional evaluation requested from prior study. Comparison is made to exams dated: 06/01/2024 mammogram, 08/08/2021 mammogram, 03/08/2018 mammogram - [facility], and 01/10/2016 mammogram - [facility]. There are scattered areas of fibroglandular density (category b / 25%-50% glandular tissue). There is a focal asymmetry in the right breast at 7 o'clock anterior depth. This is not seen in additional views. No other significant masses or calcifications are seen in the breast. IMPRESSION: NEGATIVE There is no mammographic evidence of malignancy. The focal asymmetry in the right breast is consistent with fibroglandular tissue and is benign. A 1 year screening mammogram is recommended. Exam findings were conveyed to the patient. Based on the Tyrer Cuzick model (a risk assessment model) the patient's lifetime risk is 3.1% and her 10 year risk is 2.5%. According to the ACR, ACS, and NCCN guidelines, an annual breast MRI exam along with mammogram is recommended if the patient's lifetime risk is 20% or greater. This exam was interpreted at Station ID: [id number]. NOTE: For mammograms, a report in lay terms will be sent to the patient. Approximately 15% of breast malignancies will not be visualized mammographically. In the management of a palpable breast mass, a negative mammogram must not discourage biopsy of a clinically suspicious lesion. Electronically Signed By: Rigo Castro M.D. [facility]/:06/28/2024 13:12:33 letter sent: Normal Exam ACR BI-RADS Category 1: Negative
== END ==
LOC: MAMMO 12:10
PROVIDERS: PCP Internal Medicine; Referring Provider Internal Medicine; Visit Provider Internal Medicine
DX: R92.8 Other abnormal and inconclusive findings on diagnostic imaging of breast (principal); N64.89 Other specified disorders of breast
CPT/HCPCS: 77065; G0279

== ENCOUNTER → 2024-06-26 15:55 | Outpatient (CLI) | payer MEDICARE, SELFPAY ==
[2020-09-23 03:21] VITALS: BMI 20.8
[2024-06-26 16:51] LABS: Mean Corpuscular HGB Conc 33.3 % (30-36); Mean Corpuscular Hemoglobin 29.3 PG (26-34); Mean Corpuscular Volume 88.1 fL (80-100); Platelet Count 262 X10^3/uL (150-400); Red Blood Cell Count 3.74 X10^6/uL (4.0-5.2); Red Cell Distribution Width 13.7 % (11.6-14.8); White Blood Cell Count 5.6 X10^3/uL (4.5-11.0)
[2024-06-26 17:06] LABS: HEMOLYSIS < 15 (0-50); Iron 63 ug/dL (37-170)
[2024-06-26 17:07] LABS: Aspartate Aminotransferase 21 IU/L (14-36); BUN Creatinine Ratio 41.2 (6-22); Blood Urea Nitrogen 28 mg/dL (7-17); Calcium 9.5 mg/dL (8.4-10.2); Carbon Dioxide 24 mmol/L (22-32); Chloride 99 mmol/L (98-107); Cholesterol 191 mg/dL (140-199); Estimated Glomerular Filt Rate > 60 mL/min (>60); Glucose 99 mg/dL (80-110); HDL Cholesterol 75 mg/dL (40-60); HEMOLYSIS < 15 (0-50); LDL Cholesterol Calculated 97 mg/dL (<100); Potassium 4.4 mmol/L (3.4-5.1); Sodium 132 mmol/L (137-145); Triglycerides 95 mg/dL (35-150)
[2024-06-26 17:18] LABS: Percent Iron Saturation 23 % (15-50); Total Iron Binding Capacity 279 ug/dL (265-497); Transferrin 258 mg/dL (206-381)
[2024-06-26 17:42] LABS: Ferritin 9 ng/mL (11-264)
== END ==
PROVIDERS: PCP Internal Medicine; Referring Provider Internal Medicine; Visit Provider Internal Medicine
DX: E78.2 Mixed hyperlipidemia (principal); D64.9 Anemia, unspecified; I10 Essential (primary) hypertension
CPT/HCPCS: 36415; 80048; 80061; 82728; 83540; 83550; 84450; 85027